=== PATIENT | female | born 1960 | race American Indian/Alaskan Native ===

== ENCOUNTER 2021-12-05 20:58 | Inpatient (IN) | payer SELFPAY ==
[2021-12-06] MEDS ORDERED: ACETAMINOPHEN 500 MG TAB PO ONE (00:13)
[2021-12-06] MEDS ORDERED: METOCLOPRAMIDE 10 MG TAB PO ONE (00:31)
--- NOTE | 2021-12-06 00:32 | Emergency Department Report ---
ED General Adult HPI - General Chief complaint: Headache Stated complaint: HEADACHE PUI?: Yes Time Seen by Provider: 12/06/21 00:09 Source: patient, EMS ( EMS documentation not available at time of chart dictation ), RN notes reviewed, old records reviewed Mode of arrival: Stretcher Limitations: Physical Limitation - History of Present Illness Initial comments: The patient was evaluated in the emergency department for symptoms described in the history of present illness. He/she was evaluated in the context of the global COVID-19 pandemic, which necessitated consideration that the patient might be at risk for infection with the virus that causes COVID-19. Institutional protocols and algorithms that pertain to the evaluation of patients at risk for COVID-19 are in a state of rapid change based on information released by regulatory bodies including the CDC and federal and state organizations. These policies and algorithms were followed during the patient's care in the emergency department. Please note that these policies, procedures and recommendations changed on a rapid basis. This patient is a 61-year-old female. She is currently taking Coumadin for mechanical mitral valve. She reports that she typically follows at [place] for her medical care. The patient presents to the ER today with a primary complaint of having rolled out of bed via an uncertain mechanism, and hit her head. She does not remember rolling out of bed or hitting her head. She reports that prior to this event, she believes that she was in her usual state of health. After hitting her head, she has a headache and neck pain, as well as right-sided shoulder pain. She says she feels somewhat confused. No loss of vision. No chest pain. No abdominal pain. No focal extremity weakness or numbness. No urinary symptoms, no hematemesis or bright red blood per rectum. Her exact last known well time is not known -: unknown Location: head, neck, right, upper extremity Severity scale (0 -10): 0 Consistency: constant Improves with: none Worsens with: none - Related Data Previous Rx's Medication Instructions Recorded Last Taken Type traMADoL [Ultram] 50 mg PO Q6HR PRN #7 tablet 09/26/18 Unknown Rx Allergies Allergy/AdvReac Type Severity Reaction Status Date / Time No Known Allergies Allergy Verified 09/26/18 06:52 ED Review of Systems ROS: Stated complaint: HEADACHE Other details as noted in HPI Constitutional: malaise. denies: fever Eyes: denies: eye discharge Respiratory: denies: cough Cardiovascular: denies: chest pain Gastrointestinal: denies: abdominal pain, hematemesis, melena, hematochezia Genitourinary: denies: urgency Musculoskeletal: arthralgia, myalgia Neurological: headache, weakness, confusion ED Past Medical Hx - Past Medical History Hx Hypertension: Yes Hx Asthma: Yes Additional medical history: hyperthyroid - Surgical History Hx Open Heart Surgery: Yes - Social History Smoking Status: Current Every Day Smoker Substance Use Type: None - Medications Home Medications: Home Medications Medication Instructions Recorded Confirmed Last Taken Type traMADoL [Ultram] 50 mg PO Q6HR PRN #7 tablet 09/26/18 Unknown Rx ED Physical Exam - General Limitations: No Limitations General appearance: alert, in no apparent distress - Head Head exam: Present: atraumatic, normocephalic - Eye Eye exam: Present: normal appearance, EOMI. Absent: nystagmus - ENT ENT exam: Present: normal exam, normal orophraynx, mucous membranes moist, normal external ear exam - Neck Neck exam: Present: normal inspection, tenderness, full ROM, other (There is diffuse cervical tenderness.). Absent: meningismus - Respiratory Respiratory exam: Present: normal lung sounds bilaterally. Absent: respiratory distress, wheezes, rales, rhonchi, stridor, decreased breath sounds - Cardiovascular Cardiovascular Exam: Present: regular rate, normal rhythm, normal heart sounds, systolic murmur. Absent: bradycardia, tachycardia, irregular rhythm, diastolic murmur, rubs, gallop - GI/Abdominal GI/Abdominal exam: Present: soft. Absent: distended, tenderness, guarding, rebound, rigid, pulsatile mass - Extremities Exam Extremities exam: Present: normal inspection, full ROM, tenderness (There is point tenderness to the shoulder), other (2+ pulses noted in the bilateral upper and lower extremities. There is no palpable cord. negative Homans sign. Muscular compartments are soft. The pelvis is stable.). Absent: pedal edema, calf tenderness - Back Exam Back exam: Present: normal inspection. Absent: tenderness, CVA tenderness (R), CVA tenderness (L), paraspinal tenderness, vertebral tenderness - Neurological Exam Neurological exam: Present: alert, oriented X3, other (No facial droop. Tongue midline. Extraocular movements intact bilaterally. Facial sensation intact to light touch in V1, V2, V3 distribution bilaterally. 5 and a 5 strength in 4 extremities. Sensation intact to light touch in 4 extremities.). Absent: motor sensory deficit - Psychiatric Psychiatric exam: Present: flat affect - Skin Skin exam: Present: warm, dry, intact, normal color. Absent: rash ED Course Vital Signs 12/05/21 12/06/21 12/06/21 21:06 01:20 02:14 Temperature 98.7 F Pulse Rate 77 102 H Respiratory 18 14 12 Rate Blood Pressure Blood Pressure 116/84 [Left] O2 Sat by Pulse 98 100 Oximetry 12/06/21 12/06/21 12/06/21 02:15 02:31 02:45 Temperature Pulse Rate 94 H 90 92 H Respiratory 12 18 15 Rate Blood Pressure 135/86 140/88 140/88 Blood Pressure [Left] O2 Sat by Pulse 100 100 100 Oximetry 12/06/21 12/06/21 12/06/21 03:01 03:15 03:31 Temperature Pulse Rate 82 85 82 Respiratory 17 17 12 Rate Blood Pressure 138/96 138/96 146/97 Blood Pressure [Left] O2 Sat by Pulse 100 100 100 Oximetry ED Medical Decision Making - Lab Data Result diagrams: 12/06/21 00:55 12/06/21 00:55 Vital Signs 12/05/21 12/06/21 21:06 01:20 Temperature 98.7 F Pulse Rate 77 Respiratory 18 14 Rate Blood Pressure 116/84 [Left] O2 Sat by Pulse 98 Oximetry Lab Results 12/06/21 12/06/21 12/06/21 Range/Units 00:55 00:55 00:55 WBC 7.1 (4.5-11.0) K/mm3 RBC 5.17 H (3.65-5.03) M/mm3 Hgb 14.4 H (10.1-14.3) gm/dl Hct 45.8 H (30.3-42.9) % MCV 89 (79-97) fl MCH 28 (28-32) pg MCHC 31 (30-34) % RDW 14.8 (13.2-15.2) % Plt Count 265 (140-440) K/mm3 Lymph % (Auto) 20.6 (13.4-35.0) % [place] % (Auto) 8.7 H (0.0-7.3) % Eos % (Auto) 1.0 (0.0-4.3) % Baso % (Auto) 1.2 (0.0-1.8) % Lymph # (Auto) 1.5 (1.2-5.4) K/mm3 [place] # (Auto) 0.6 (0.0-0.8) K/mm3 Eos # (Auto) 0.1 (0.0-0.4) K/mm3 Baso # (Auto) 0.1 (0.0-0.1) K/mm3 Seg Neutrophils % 68.5 (40.0-70.0) % Seg Neutrophils # 4.9 (1.8-7.7) K/mm3 PT 16.7 H (12.2-14.9) Sec. INR 1.22 H (0.87-1.13) Sodium 138 (137-145) mmol/L Potassium 4.1 (3.6-5.0) mmol/L Chloride 104.1 (98-107) mmol/L Carbon Dioxide 19 L (22-30) mmol/L Anion Gap 19 mmol/L BUN 12 (7-17) mg/dL Creatinine 1.0 (0.6-1.2) mg/dL Estimated GFR > 60 ml/min BUN/Creatinine Ratio 12 % Glucose 98 (65-100) mg/dL Calcium 9.4 (8.4-10.2) mg/dL - EKG Data -: EKG Interpreted by Or EKG shows normal: sinus rhythm Rate: normal - EKG Data 12/06/21 02:05 The EKG is interpreted at 12: 47 Motion artifact, sinus rhythm, rate 95 bpm. Left axis deviation, borderline left anterior fascicular block. Motion artifact. Abnormal EKG. Not a STEMI. QTc 5 1 9 ms - Radiology Data Radiology results: pending, report reviewed, image reviewed CT cervical spine wo con, CT head/brain wo con INDICATION: Pt had a fall with head trauma, on Warfarin. TECHNIQUE: CT head and cervical spine without contrast. All CT scans at this location are performed using CT dose reduction for ALARA by means of automated exposure control. COMPARISON: None. FINDINGS: HEAD: BRAIN PARENCHYMA: Asymmetric hypoattenuation of the right frontal lobe with loss of linn-white differentiation of the superior right frontal lobe (series 3 image 21) in the frontotemporal region (series 2 image 13 and series 601 image 40). No acute intracranial hemorrhage. No significant mass effect or midline shift. VENTRICULAR SYSTEM/EXTRA-AXIAL SPACES: Ventricles are normal for age. No extra-axial fluid collection. ORBITS: Normal as visualized. SKELETAL SYSTEM/SOFT TISSUES: Normal bones and soft tissues. PARANASAL SINUSES/MASTOID AIR CELLS: No significant abnormality. CERVICAL: Alignment: Normal. No acute subluxation. Geographic Bone Lesion: None present. Fracture: No acute fracture. Degenerative Changes: Mild multilevel cervical spondylosis. No significant central canal compromise. Epidural Hematoma: Not present. Prevertebral / Paraspinal Soft Tissues: Unremarkable. IMPRESSION: 1. Findings concerning for recent infarct in the right frontal lobe, as above. Recommend correlation with MRI. 2. No evidence of acute intracranial hemorrhage. 3. No acute cervical spinal fracture. CRITICAL RESULT: Time of Discovery (INFORMATION SECURITY SYSTEMS INSTRUCTOR/CDT): 12/06/2021 at 12:50 AM Time of Communication (INFORMATION SECURITY SYSTEMS INSTRUCTOR/CDT): 10/05/2022 at 12:52 AM Licensed Practitioner Receiving Report: Dr. Shen Read-Back Performed: Yes. Signer Name: Tino Cheatham MD Signed: 12/06/2021 12:52 AM Workstation Name: [id number] Right shoulder, 3 views HISTORY: Fall COMPARISON: None FINDINGS: Moderate right AC osteoarthritis. Subacromial space is preserved. No acute fracture or malalignment. Soft tissues are unremarkable. Visualized lungs are clear. IMPRESSION: No acute process. Moderate right AC joint osteoarthritis. Signer Name: Tino Cheatham MD Signed: 12/05/2021 11:53 PM Workstation Name: [id number] - Medical Decision Making Differential diagnosis, including but not limited to: Orthostasis, vagal event, structural cardiac disease, closed head injury, cervical spine injury, intracranial hemorrhage, right shoulder sprain, strain, contusion Assessment and plan 61-year-old female, last known well time not known, currently on Coumadin for mechanical mitral valve, resenting to the ER today with a primary complaint of blunt head injury and closed head injury, rolling out of the bed, and an uncertain time, uncertain mechanism. She is clinically sober, but somewhat confused, and slow to respond, patient even stated to one my colleagues "I'm slow." She has headache and neck pain, therefore, CT scan of the brain, and cervical spine are obtained, especially given the fact that the patient is systemically anticoagulated. No traumatic findings are noted, however, she is found to have evidence of a subacute stroke. tPA not indicated, as last known well time not explicitly known, and the patient takes Coumadin and systemic anticoagulation. Her examination at this time is not suggestive of a large vessel occlusion. Contacted neurology on-call, Dr. Mary Hurst, and we discussed the patient's history, physical, laboratory studies imaging studies and clinical impression. Full dose aspirin is recommended, it is recommended that we hold Coumadin at this time, given concern and potential for hemorrhagic transformation. We both agree that the patient does not require emergent CT angiographic imaging of the head and neck at this time, as her presentation is not suggestive of a large vessel occlusion. The patient will be admitted to the medical service, under the care of Dr. Fishman Given that this patient has a mechanical mitral valve, I will defer to the inpatient team to follow-up on the MRI compatibility of this valve. The aforementioned neurologist does advise that it may be reasonable to obtain repeat head CT, an inpatient CT angiogram head and neck, to evaluate vascular anatomy. I agree with this plan of care. Patient is agreeable to admission and hospitalization Critical care attestation.: If time is entered above; I have spent that time in minutes in the direct care of this critically ill patient, excluding procedure time. ED Disposition Clinical Impression: Right shoulder pain, Closed head injury, Neck pain, Anticoagulated, Abnormal CT of brain Disposition: ADMITTED INPATIENT Is pt being admited?: Yes Does the pt Need Aspirin: No (Ordered by myself.) Condition: Stable
--- NOTE | 2021-12-06 00:58 | XRay Report ---
Right shoulder, 3 views HISTORY: Fall COMPARISON: None FINDINGS: Moderate right AC osteoarthritis. Subacromial space is preserved. No acute fracture or khoi lignment. Soft tissues are unremarkable. Visualized lungs are clear. IMPRESSION: No acute process. Moderate right AC joint osteoarthritis. Signer Name: Tino Cheatham MD Signed: 12/06/2021 12:53 AM Workstation Name: [id number]
[2021-12-06 01:20] LABS: Basophils # (Auto) 0.1 K/mm3 (0.0-0.1); Basophils % (Auto) 1.2 % (0.0-1.8); Eosinophils # (Auto) 0.1 K/mm3 (0.0-0.4); Hematocrit 45.8 % (30.3-42.9); Hemoglobin 14.4 gm/dl (10.1-14.3); Lymphocytes # (Auto) 1.5 K/mm3 (1.2-5.4); Lymphocytes % (Auto) 20.6 % (13.4-35.0); Mean Corpuscular HGB Conc 31 % (30-34); Mean Corpuscular Volume 89 fl (79-97); Monocytes # (Auto) 0.6 K/mm3 (0.0-0.8); Monocytes % (Auto) 8.7 % (0.0-7.3); Platelet Count 265 K/mm3 (140-440); Red Blood Count 5.17 M/mm3 (3.65-5.03); Red Cell Distribution Width 14.8 % (13.2-15.2)
[2021-12-06 01:31] LABS: INR 1.22 (0.87-1.13)
[2021-12-06 01:34] LABS: BUN/Creatinine Ratio 12; Blood Urea Nitrogen 12 mg/dL (7-17); Calcium 9.4 mg/dL (8.4-10.2); Hemolysis Index 19
--- NOTE | 2021-12-06 01:56 | Cat Scan Report ---
CT cervical spine wo con, CT head/brain wo con INDICATION: Pt had a fall with head trauma, on Warfarin. TECHNIQUE: CT head and cervical spine without contrast. All CT scans at this location are performed u sing CT dose reduction for ALARA by means of automated exposure control. COMPARISON: None. FINDINGS: HEAD: BRAIN PARENCHYMA: Asymmetric hypoattenuation of the right frontal lobe with loss of linn-white differ entiation of the superior right frontal lobe (series 3 image 21) in the frontotemporal region (series 2 image 13 and series 601 image 40). No acute intracranial hemorrhage. No significant mass effect or midline shift. VENTRICULAR SYSTEM/EXTRA-AXIAL SPACES: Ventricles are normal for age. No extra-axial fluid collection . ORBITS: Normal as visualized. SKELETAL SYSTEM/SOFT TISSUES: Normal bones and soft tissues. PARANASAL SINUSES/MASTOID AIR CELLS: No significant abnormality. CERVICAL: Alignment: Normal. No acute subluxation. Geographic Bone Lesion: None present. Fracture: No acute fracture. Degenerative Changes: Mild multilevel cervical spondylosis. No significant central canal compromise. Epidural Hematoma: Not present. Prevertebral / Paraspinal Soft Tissues: Unremarkable. IMPRESSION: 1. Findings concerning for recent infarct in the right frontal lobe, as above. Recommend correlation with MRI. 2. No evidence of acute intracranial hemorrhage. 3. No acute cervical spinal fracture. CRITICAL RESULT: Time of Discovery (MEDICATION SPECIALIST/CDT): 12/06/2021 at 12:50 AM Time of Communication (MEDICATION SPECIALIST/CDT): 10/05/2022 at 12:52 AM Licensed Practitioner Receiving Report: Dr. Shen Read-Back Performed: Yes. Signer Name: Tino Cheatham MD Signed: 12/06/2021 1:52 AM Workstation Name: [id number]
--- NOTE | 2021-12-06 01:56 | Cat Scan Report ---
CT cervical spine wo con, CT head/brain wo con INDICATION: Pt had a fall with head trauma, on Warfarin. TECHNIQUE: CT head and cervical spine without contrast. All CT scans at this location are performed u sing CT dose reduction for ALARA by means of automated exposure control. COMPARISON: None. FINDINGS: HEAD: BRAIN PARENCHYMA: Asymmetric hypoattenuation of the right frontal lobe with loss of linn-white differ entiation of the superior right frontal lobe (series 3 image 21) in the frontotemporal region (series 2 image 13 and series 601 image 40). No acute intracranial hemorrhage. No significant mass effect or midline shift. VENTRICULAR SYSTEM/EXTRA-AXIAL SPACES: Ventricles are normal for age. No extra-axial fluid collection . ORBITS: Normal as visualized. SKELETAL SYSTEM/SOFT TISSUES: Normal bones and soft tissues. PARANASAL SINUSES/MASTOID AIR CELLS: No significant abnormality. CERVICAL: Alignment: Normal. No acute subluxation. Geographic Bone Lesion: None present. Fracture: No acute fracture. Degenerative Changes: Mild multilevel cervical spondylosis. No significant central canal compromise. Epidural Hematoma: Not present. Prevertebral / Paraspinal Soft Tissues: Unremarkable. IMPRESSION: 1. Findings concerning for recent infarct in the right frontal lobe, as above. Recommend correlation with MRI. 2. No evidence of acute intracranial hemorrhage. 3. No acute cervical spinal fracture. CRITICAL RESULT: Time of Discovery (BLOCK BREAKER/CDT): 12/06/2021 at 12:50 AM Time of Communication (BLOCK BREAKER/CDT): 10/05/2022 at 12:52 AM Licensed Practitioner Receiving Report: Dr. Shen Read-Back Performed: Yes. Signer Name: Tino Cheatham MD Signed: 12/06/2021 1:52 AM Workstation Name: [id number]
[2021-12-06] MEDS ORDERED: ASPIRIN 81 MG TAB CHEW PO ONE (01:59)
[2021-12-06] MEDS ORDERED: HYDROmorphone 1 MG/1 ML INJ IV PRN (02:32)
[2021-12-06] MEDS ORDERED: ONDANSETRON 4 MG/2 ML INJ IV PRN (02:32)
[2021-12-06] MEDS ORDERED: ALBUTEROL 2.5 MG/3 ML NEBU IH PRN (02:32)
[2021-12-06] MEDS ORDERED: MORPHINE 2 MG/1 ML INJ IV PRN (02:32)
--- NOTE | 2021-12-06 02:43 | History and Physical Report ---
History of Present Illness Date of examination: 12/06/21 Date of admission: 12/06/21 Chief complaint: Headache Strokelike symptom History of present illness: 61-year-old female with past medical history of hypertension, asthma, hypothyroidism, currently taking Coumadin for mechanical mitral valve was brought to the emergency room because of headache strokelike symptom. Patient get up from the bed and feels weak. Initial CT scan of the head shows findings concerning for recent infarct in the right frontal lobe. No evidence of acute intracranial hemorrhage. No acute cervical spinal fracture . Subsequently ER doctor discussed the case with neurologist on-call who recommended aspirin 325 mg and admit the patient for further stroke work-up. So going to admit the patient I put the patient on stroke pathway. Aspirin 325 mg p.o. daily Lipitor 40 mg p.o. daily will consult neurology for evaluation also order MRI of the brain MR ray of the brain and neck and patient also has elevated troponin. Will consult cardiology and echocardiogram she reports that she typically follows at [place] for her medical care. Past History Past Medical History: hypertension, other (Asthma hypothyroidism) Past Surgical History: Other (Mitral valve surgery) Social history: smoking Medications and Allergies Allergies Allergy/AdvReac Type Severity Reaction Status Date / Time No Known Allergies Allergy Verified 09/26/18 06:52 Home Medications Medication Instructions Recorded Confirmed Last Taken Type traMADoL [Ultram] 50 mg PO Q6HR PRN #7 tablet 09/26/18 Unknown Rx Active Meds: Active Medications Acetaminophen (Acetaminophen 325 Mg Tab) 650 mg PO Q4H PRN PRN Reason: Pain MILD(1-3)/Fever >100.5/PRABHAKAR Albuterol (Albuterol 2.5 Mg/3 Ml Nebu) 2.5 mg IH Q3HRT PRN PRN Reason: Shortness Of Breath Albuterol/Ipratropium (Ipratropium/Albuterol Sulfate 3 Ml Ampul.Neb) 1 ampul IH Q6HRT GERSON Aspirin (Aspirin 325 Mg Tab) 325 mg PO QDAY GERSON Atorvastatin Calcium (Atorvastatin 40 Mg Tab) 40 mg PO QHS GERSON Famotidine (Famotidine 20 Mg/2 Ml Inj) 20 mg IV BID GERSON Hydromorphone HCl (Hydromorphone 1 Mg/1 Ml Inj) 0.5 mg IV Q3H PRN PRN Reason: Pain , Severe (7-10) Sodium Chloride (Nacl 0.9% 1000 Ml) 1,000 mls @ 100 mls/hr IV DIRECT GERSON Labetalol HCl (Labetalol 20 Mg/4 Ml Inj) 10 mg IV Q5MIN PRN PRN Reason: to maintain SBP < 180 Morphine Sulfate (Morphine 2 Mg/1 Ml Inj) 2 mg IV Q4H PRN PRN Reason: Pain, Moderate (4-6) Ondansetron HCl (Ondansetron 4 Mg/2 Ml Inj) 4 mg IV Q8H PRN PRN Reason: Nausea And Vomiting Sodium Chloride (Sodium Chloride 0.9% 10 Ml Flush Syringe) 10 ml IV BID GERSON Sodium Chloride (Sodium Chloride 0.9% 10 Ml Flush Syringe) 10 ml IV PRN PRN PRN Reason: LINE FLUSH Sodium Chloride (Sodium Chloride 0.9% 10 Ml Flush Syringe) 10 ml INJ PRN PRN PRN Reason: LINE FLUSH Review of Systems Constitutional: weakness, other (Headache) Exam - Constitutional Vitals: Temp Pulse Resp BP Pulse Ox 98.7 F 94 H 12 135/86 100 12/05/21 21:06 12/06/21 02:15 12/06/21 02:15 12/06/21 02:15 12/06/21 02:15 General appearance: Present: no acute distress, well-nourished - EENT Eyes: Present: PERRL ENT: hearing intact, clear oral mucosa - Neck Neck: Present: supple, normal ROM - Respiratory Respiratory effort: normal Respiratory: bilateral: CTA - Cardiovascular Heart Sounds: Present: S1 & S2. Absent: rub, click - Extremities Extremities: pulses symmetrical, No edema Peripheral Pulses: within normal limits - Abdominal General gastrointestinal: Present: soft, non-tender, non-distended, normal bowel sounds Female genitourinary: Present: normal - Integumentary Integumentary: Present: clear, warm, dry - Musculoskeletal Musculoskeletal: gait normal, strength equal bilaterally - Psychiatric Psychiatric: appropriate mood/affect, intact judgment & insight - Neurologic Neurologic: CNII-XII intact, moves all extremities Results - Labs CBC & Chem 7: 12/06/21 00:55 12/06/21 00:55 Labs: Laboratory Last Values WBC 7.1 K/mm3 (4.5-11.0) 12/06/21 00:55 RBC 5.17 M/mm3 (3.65-5.03) H 12/06/21 00:55 Hgb 14.4 gm/dl (10.1-14.3) H 12/06/21 00:55 Hct 45.8 % (30.3-42.9) H 12/06/21 00:55 MCV 89 fl (79-97) 12/06/21 00:55 MCH 28 pg (28-32) 12/06/21 00:55 MCHC 31 % (30-34) 12/06/21 00:55 RDW 14.8 % (13.2-15.2) 12/06/21 00:55 Plt Count 265 K/mm3 (140-440) 12/06/21 00:55 Lymph % (Auto) 20.6 % (13.4-35.0) 12/06/21 00:55 [place] % (Auto) 8.7 % (0.0-7.3) H 12/06/21 00:55 Eos % (Auto) 1.0 % (0.0-4.3) 12/06/21 00:55 Baso % (Auto) 1.2 % (0.0-1.8) 12/06/21 00:55 Lymph # (Auto) 1.5 K/mm3 (1.2-5.4) 12/06/21 00:55 [place] # (Auto) 0.6 K/mm3 (0.0-0.8) 12/06/21 00:55 Eos # (Auto) 0.1 K/mm3 (0.0-0.4) 12/06/21 00:55 Baso # (Auto) 0.1 K/mm3 (0.0-0.1) 12/06/21 00:55 Seg Neutrophils % 68.5 % (40.0-70.0) 12/06/21 00:55 Seg Neutrophils # 4.9 K/mm3 (1.8-7.7) 12/06/21 00:55 PT 16.7 Sec. (12.2-14.9) H 12/06/21 00:55 INR 1.22 (0.87-1.13) H 12/06/21 00:55 Sodium 138 mmol/L (137-145) 12/06/21 00:55 Potassium 4.1 mmol/L (3.6-5.0) 12/06/21 00:55 Chloride 104.1 mmol/L (98-107) 12/06/21 00:55 Carbon Dioxide 19 mmol/L (22-30) L 12/06/21 00:55 Anion Gap 19 mmol/L 12/06/21 00:55 BUN 12 mg/dL (7-17) 12/06/21 00:55 Creatinine 1.0 mg/dL (0.6-1.2) 12/06/21 00:55 Estimated GFR > 60 ml/min 12/06/21 00:55 BUN/Creatinine Ratio 12 % 12/06/21 00:55 Glucose 98 mg/dL (65-100) 12/06/21 00:55 Calcium 9.4 mg/dL (8.4-10.2) 12/06/21 00:55 - Imaging and Cardiology CT Scan - head: report reviewed Assessment and Plan VTE prophylaxis?: Mechanical Plan of care discussed with patient/family: Yes - Patient Problems (1) CVA (cerebral vascular accident) Current Visit: Yes Status: Acute Plan to address problem: Admit the patient to the medical telemetry. Aspirin 325 mg p.o. daily as per neurology recommendation. Lipitor 40 mg p.o. daily. PT OT speech evaluation neurology recommendation and evaluation. MRI of the brain MRA of the brain and neck with and without contrast, echocardiogram (2) HTN (hypertension) Current Visit: Yes Status: Acute Plan to address problem: Labetalol 10 mg IV every 6 hours as needed. We will continue the home medication (3) Asthma Current Visit: Yes Status: Acute Plan to address problem: Oxygen via nasal cannula 3 L/min. DuoNeb by nebulizer every 4 hours. Albuterol via nebulizer every 4 hours as needed (4) Mitral valve disorder Current Visit: Yes Status: Acute Plan to address problem: Patient has history of mitral valve surgery on Coumadin as per note with subtherapeutic PT/INR. We will follow neurology recommendation and resume Coumadin if okay with neurology (5) Tobacco abuse Current Visit: Yes Status: Acute Plan to address problem: Patient counseled regarding quitting smoking. Nicotine patch if needed (6) Elevated troponin Current Visit: Yes Status: Acute Plan to address problem: Aspirin 325 mg p.o. daily. Lipitor 40 mg p.o. daily. Due to the serial cardiac enzyme. Nitroglycerin as needed. Echocardiogram. Cardiology evaluation (7) DVT prophylaxis Current Visit: Yes Status: Acute Plan to address problem: SCD for DVT prophylaxis. Pepcid 20 mg IV every 12 hours for GI prophylaxis. Patient is a full code
[2021-12-06] MEDS ORDERED: SODIUM CHLORIDE 0.9% 1000 ML 1,000 ML IV SCH (02:45)
[2021-12-06 05:34] LABS: Chol/HDL Ratio 3.65 %
--- NOTE | 2021-12-06 08:27 | Emergency Department Report ---
Blank Doc - Documentation Documentation: [facility] Consult Note # Demographics Consult Type: General Neurology Patient Location: Emergency Room First Name: Mary Ellen Last Name: Jared Date of : 1960 Age: 61 Gender: Female Facility: [facility] Time of Initial Page (Eastern Time): 12/06/2021, 01:55 Time of Return Call (Eastern Time): 12/06/2021, 01:55 Phone Only Consult: 61 yo woman on warfarin for mechanical valve presenting with headache and mild confusion , self reported. CT head without bleed but possible subacute stroke per radiology. Last known well last night. Plan to admit for stroke work up. MRI brain if able with valve. Infectious work up. Vascular imaging. Aspirin for now. Can resume Warfarin if stable repeat imaging Pt/ ot # Logistics Telemedicine: phone only
--- NOTE | 2021-12-06 09:01 | Consultation ---
History of Present Illness Consult date: 12/06/21 Reason for Consult: Confusion and headache, Hx of mitral valve and is on coumadine ,INR#1.2 History of present illness: Headache Strokelike symptom History of present illness: 61-year-old female with past medical history of hypertension, asthma, hypothyroidism, currently taking Coumadin for mechanical mitral valve was brought to the emergency room because of headache strokelike symptom. Patient get up from the bed and feels weak. Initial CT scan of the head shows findings concerning for recent infarct in the right frontal lobe. No evidence of acute intracranial hemorrhage. No acute cervical spinal fracture . today she is alert oriented with sluggish speech , and slight left side weakness according to her at time she forget to take her Coumadin, her NIH#1.22 she reports that she typically follows at [facility] for her medical care. Past History Past Medical History: hypertension, other (Asthma hypothyroidism),AF Past Surgical History: Other (Mitral valve surgery)1999 Social history: smoking Medications and Allergies Allergies Allergy/AdvReac Type Severity Reaction Status Date / Time No Known Allergies Allergy Verified 09/26/18 06:52 Home Medications Medication Instructions Recorded Confirmed Last Taken Type traMADoL [Ultram] 50 mg PO Q6HR PRN #7 tablet 09/26/18 Unknown Rx Active Meds: Active Medications Acetaminophen (Acetaminophen 325 Mg Tab) 650 mg PO Q4H PRN PRN Reason: Pain MILD(1-3)/Fever >100.5/PRABHAKAR Albuterol (Albuterol 2.5 Mg/3 Ml Nebu) 2.5 mg IH Q3HRT PRN PRN Reason: Shortness Of Breath Albuterol/Ipratropium (Ipratropium/Albuterol Sulfate 3 Ml Ampul.Neb) 1 ampul IH Q6HRT GERSON Aspirin (Aspirin 325 Mg Tab) 325 mg PO QDAY GERSON Atorvastatin Calcium (Atorvastatin 40 Mg Tab) 40 mg PO QHS GERSON Famotidine (Famotidine 20 Mg/2 Ml Inj) 20 mg IV BID GERSON Hydromorphone HCl (Hydromorphone 1 Mg/1 Ml Inj) 0.5 mg IV Q3H PRN PRN Reason: Pain , Severe (7-10) Sodium Chloride (Nacl 0.9% 1000 Ml) 1,000 mls @ 100 mls/hr IV DIRECT GERSON Labetalol HCl (Labetalol 20 Mg/4 Ml Inj) 10 mg IV Q5MIN PRN PRN Reason: to maintain SBP < 180 Morphine Sulfate (Morphine 2 Mg/1 Ml Inj) 2 mg IV Q4H PRN PRN Reason: Pain, Moderate (4-6) Ondansetron HCl (Ondansetron 4 Mg/2 Ml Inj) 4 mg IV Q8H PRN PRN Reason: Nausea And Vomiting Sodium Chloride (Sodium Chloride 0.9% 10 Ml Flush Syringe) 10 ml IV BID GERSON Sodium Chloride (Sodium Chloride 0.9% 10 Ml Flush Syringe) 10 ml IV PRN PRN PRN Reason: LINE FLUSH Sodium Chloride (Sodium Chloride 0.9% 10 Ml Flush Syringe) 10 ml INJ PRN PRN PRN Reason: LINE FLUSH Review of Systems Constitutional: weakness, other (Headache) Exam Past History Past Medical History: hypertension, other (Asthma hypothyroidism) Past Surgical History: Other (Mitral valve surgery) Social history: smoking Medications and Allergies Allergies Allergy/AdvReac Type Severity Reaction Status Date / Time No Known Allergies Allergy Verified 09/26/18 06:52 Home Medications Medication Instructions Recorded Confirmed Last Taken Type traMADoL [Ultram] 50 mg PO Q6HR PRN #7 tablet 09/26/18 Unknown Rx Active Meds: Active Medications Acetaminophen (Acetaminophen 325 Mg Tab) 650 mg PO Q4H PRN PRN Reason: Pain MILD(1-3)/Fever >100.5/PRABHAKAR Albuterol (Albuterol 2.5 Mg/3 Ml Nebu) 2.5 mg IH Q3HRT PRN PRN Reason: Shortness Of Breath Albuterol/Ipratropium (Ipratropium/Albuterol Sulfate 3 Ml Ampul.Neb) 1 ampul IH Q6HRT GERSON Aspirin (Aspirin 325 Mg Tab) 325 mg PO QDAY GERSON Atorvastatin Calcium (Atorvastatin 40 Mg Tab) 40 mg PO QHS GERSON Famotidine (Famotidine 20 Mg/2 Ml Inj) 20 mg IV BID GERSON Hydromorphone HCl (Hydromorphone 1 Mg/1 Ml Inj) 0.5 mg IV Q3H PRN PRN Reason: Pain , Severe (7-10) Sodium Chloride (Nacl 0.9% 1000 Ml) 1,000 mls @ 100 mls/hr IV DIRECT GERSON Labetalol HCl (Labetalol 20 Mg/4 Ml Inj) 10 mg IV Q5MIN PRN PRN Reason: to maintain SBP < 180 Morphine Sulfate (Morphine 2 Mg/1 Ml Inj) 2 mg IV Q4H PRN PRN Reason: Pain, Moderate (4-6) Ondansetron HCl (Ondansetron 4 Mg/2 Ml Inj) 4 mg IV Q8H PRN PRN Reason: Nausea And Vomiting Sodium Chloride (Sodium Chloride 0.9% 10 Ml Flush Syringe) 10 ml IV BID GERSON Sodium Chloride (Sodium Chloride 0.9% 10 Ml Flush Syringe) 10 ml IV PRN PRN PRN Reason: LINE FLUSH Physical Examination - Vital Signs Vital Signs: Vital Signs Temp Pulse Resp BP Pulse Ox 98.7 F 77 18 116/84 98 12/05/21 21:06 12/05/21 21:06 12/05/21 21:06 12/05/21 21:06 12/05/21 21:06 - Constitutional General appearance: comfortable - EENT EENT: Present: PERRL, mucous membranes moist - Respiratory Respiratory: Present: lungs clear, rhonchi - Cardiovascular Cardiovascular: Present: other (irregular) Extremities: Present: no peripheral edema bilatateraly, no clubbing, cyanosis - Gastrointestinal Gastrointestinal: Present: normoactive bowel sounds - Integumentary Integumentary: Present: normal - Neurologic Cranial nerve examination: PERRL, EOMI, facial droop Detailed motor examination: other (left side weakness4-/5 upper and lower , sensation intact , reflexes2+ gait not done) - Level of Consciousness 1a. Level of Consciousness: alert/keenly responsive - LOC Questions 1b. LOC Questions: answers both correctly - LOC Command 1c. LOC Commands: performs tasks correctly - Best Gaze 2. Best Gaze: normal - Visual 3. Visual: no visual loss - Facial Palsy 4. Facial Palsy: minor paralysis - Motor Arm 5a. Motor Arm Left: drift 5b. Motor Arm Right: no drift - Motor Leg 6a. Motor Leg Left: drift 6b. Motor Leg Right: no drift - Limb Ataxia 7. Limb Ataxia: absent - Sensory 8. Sensory: normal - Best Language 9. Best Language: no aphasia - Dysarthria 10. Dysarthria: normal - Extinction and Inattention 11. Extinction/Inattention: no abnormality - Scoring Total Score: 3 Stroke Severity: Minor Stroke Results - Laboratory Findings CBC and BMP: 12/06/21 00:55 12/06/21 00:55 Abnormal Lab Findings: Abnormal Labs 12/06/21 12/06/21 12/06/21 00:55 00:55 00:55 RBC 5.17 H Hgb 14.4 H Hct 45.8 H [place] % (Auto) 8.7 H PT 16.7 H INR 1.22 H Carbon Dioxide 19 L Troponin T Cholesterol LDL Cholesterol Direct HDL Cholesterol 12/06/21 00:55 RBC Hgb Hct [place] % (Auto) PT INR Carbon Dioxide Troponin T 0.188 H* Cholesterol 230 H LDL Cholesterol Direct 148 H HDL Cholesterol 63 H Assessment and Plan Assessment and Plan 61-year-old female with past medical history of hypertension, asthma, hypothyroidism, currently taking Coumadin for mechanical mitral valve was brought to the emergency room because of headache strokelike symptom. Patient get up from the bed and feels weak. Initial CT scan of the head shows findings concerning for recent infarct in the right frontal lobe. No evidence of acute intracranial hemorrhage. No acute cervical spinal fracture . - Patient Problems # CVA (cerebral vascular accident) -new onst noted yesterday by pt. -Ct brain possible right frontal hypodensity -she is not a candidate for TPA nor thrombectomy -she is on coumadin with INR#1.22 subtherapeutic -she is with poor compliance with her medications -today NIH#3 -echo is remarkable for left dilated atrium with Ef#45-50% no thrombus is noted -Hx of AF -LDL#148 -started on ASA and lipitor -coumadin is on hold -MRI brain showedright basal ganglia and right frontal infarct , no hemorrhage -MRA brain no large vesseles involvment is noted -US carotid is pending -Pt/ST evaluate #HTN (hypertension) -Labetalol 10 mg IV every 6 hours as needed. We will continue the home medication # Asthma -Oxygen via nasal cannula 3 L/min. DuoNeb by nebulizer every 4 hours. Albuterol via nebulizer every 4 hours as needed # Mitral valve disorder -Patient has history of mitral valve surgery on Coumadin as per note with subtherapeutic PT/INR. -no objection to resume coumadine -INR>3 # Atrial fibrillation -controlled rate -echo with dilated left atrium -on coumadine with subtherapeutic INR#1.22 -no objection to restart coumadine # Elevated troponin Current Visit: Yes Status: Acute Plan to address problem: Aspirin 325 mg p.o. daily. Lipitor 40 mg p.o. daily. Due to the serial cardiac enzyme. Nitroglycerin as needed. Echocardiogram. Cardiology evaluation # Tobacco abuse -Patient counseled regarding quitting smoking. Nicotine patch if needed # DVT prophylaxis -SCD for DVT prophylaxis. Pepcid 20 mg IV every 12 hours for GI prophylaxis. Patient is a full code will follow
[2021-12-06] MEDS: IPRATROPIUM/ALBUTEROL SULFATE 3 ML AMPUL.NEB IH SCH ×3 (10:00→21:18)
--- NOTE | 2021-12-06 10:26 | Magnetic Resonance Report ---
MR brain wo con, MR MRA/MRV head wo con INDICATION / CLINICAL INFORMATION: stroke, dizziness & headache. TECHNIQUE: Multiplanar, multisequence MRI of the brain. MRA of the head. 3-D/MIP reformats postprocessed. Percentage stenosis is determined by direct quantit ative measurements of distal internal carotid artery diameter compared with normal reference segments or by criteria similar to NASCET where applicable. COMPARISON: None available. FINDINGS: BRAIN: Intracranial: Restricted diffusion is seen within the right caudate, putamen, right frontal lobe, and a small punctate focus seen within the right posterior parietal lobe. The areas infarction involving the middle and anterior cerebral artery territories as the medial aspect of the right superior front al gyrus is involved. No hemorrhage. Ventricular caliber is normal. No extra-axial collection. No mas s. No herniation. Mild sequela of chronic vascular disease. Orbits: No significant abnormality of visualized orbits. Sinuses/mastoid: No significant abnormality of visualized sinuses and mastoid air cells. Additional findings: None. MRA HEAD: Intracranial vertebral arteries: No occlusion or significant stenosis. Basilar artery: No occlusion or significant stenosis. Posterior cerebral arteries: No occlusion or significant stenosis. Intracranial internal carotid arteries: No occlusion or significant stenosis. Anterior cerebral arteries: Left anterior cerebral artery is hypoplastic or absent. No occlusion or s ignificant stenosis. Middle cerebral arteries: No occlusion or significant stenosis. No aneurysm. Additional findings: None. IMPRESSION: 1. MRI Brain: Acute infarction involving the right basal ganglia and frontal lobe and both FEI and MC A territories. 2. MRA Head: No proximal large vessel occlusion. Signer Name: Corky Dolan MD Signed: 12/06/2021 10:21 AM Workstation Name: [id number]
--- NOTE | 2021-12-06 10:29 | Electrocardiograph Report ---
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
--- NOTE | 2021-12-06 13:24 | Consultation ---
History of Present Illness Consult date: 12/06/21 Requesting physician: NICOLAS JAIMES Consult reason: elevated troponin History of present illness: Patient is a 61-year-old female with a past medical history of hypertension, A. fib, CHF, mechanical mitral valve, hypothyroidism who came to the ED for a fall overnight. Patient states that she was getting out of bed when she fell and hit her head. Patient states she felt weak which precipitated her fall. Hospital work-up thus far has shown patient to have acute CVA. Of note patient reports that she gets all her care from [facility] however she has not followed up recently. She further reports that she has not had her INR checked in a long time she cannot quantify how long. In the ED her INR was found to be subtherapeutic. Patient was also found to have elevated troponins however patient denies any complaints of chest pain, shortness of breath, nausea, vomiting, or diaphoresis. Patient is previously unknown by our practice. Cardiology is consulted for elevated troponins Past History Past Medical History: atrial fib, heart failure, hypertension, other (Asthma hypothyroidism) Past Surgical History: Other (Mitral valve surgery) Social history: smoking Family history: CAD, stroke Medications and Allergies Allergies Allergy/AdvReac Type Severity Reaction Status Date / Time No Known Allergies Allergy Verified 09/26/18 06:52 Home Medications Medication Instructions Recorded Confirmed Last Taken Type traMADoL [Ultram] 50 mg PO Q6HR PRN #7 tablet 09/26/18 Unknown Rx Active Meds: Active Medications Acetaminophen (Acetaminophen 325 Mg Tab) 650 mg PO Q4H PRN PRN Reason: Pain MILD(1-3)/Fever >100.5/PRABHAKAR Albuterol (Albuterol 2.5 Mg/3 Ml Nebu) 2.5 mg IH Q3HRT PRN PRN Reason: Shortness Of Breath Albuterol/Ipratropium (Ipratropium/Albuterol Sulfate 3 Ml Ampul.Neb) 1 ampul IH Q6HRT [facility] Last Admin: 12/06/21 10:00 Dose: Not Given Aspirin (Aspirin 325 Mg Tab) 325 mg PO QDAY [facility] Atorvastatin Calcium (Atorvastatin 40 Mg Tab) 40 mg PO QHS [facility] Famotidine (Famotidine 20 Mg/2 Ml Inj) 20 mg IV BID [facility] Sodium Chloride (Nacl 0.9% 1000 Ml) 1,000 mls @ 100 mls/hr IV DIRECT GERSON Labetalol HCl (Labetalol 20 Mg/4 Ml Inj) 10 mg IV Q5MIN PRN PRN Reason: to maintain SBP < 180 Ondansetron HCl (Ondansetron 4 Mg/2 Ml Inj) 4 mg IV Q8H PRN PRN Reason: Nausea And Vomiting Sodium Chloride (Sodium Chloride 0.9% 10 Ml Flush Syringe) 10 ml IV BID GERSON Sodium Chloride (Sodium Chloride 0.9% 10 Ml Flush Syringe) 10 ml IV PRN PRN PRN Reason: LINE FLUSH Review of Systems Constitutional: weakness, no weight loss, no weight gain, no fever Ears, nose, mouth and throat: no nasal congestion, no nasal discharge, no sinus pressure Cardiovascular: no chest pain, no orthopnea, no palpitations, no edema, no lightheadedness, no shortness of breath, no dyspnea on exertion Respiratory: no shortness of breath, no dyspnea on exertion Gastrointestinal: no abdominal pain, no nausea, no vomiting Musculoskeletal: muscle weakness, no neck stiffness, no neck pain Integumentary: no rash, no pruritis, no redness Neurological: weakness Psychiatric: no anxiety, no memory loss Endocrine: no cold intolerance, no heat intolerance Hematologic/Lymphatic: no easy bruising, no easy bleeding Physical Examination Vital Signs Temp Pulse Resp BP Pulse Ox 98.7 F 77 18 116/84 98 12/05/21 21:06 12/05/21 21:06 12/05/21 21:06 12/05/21 21:06 12/05/21 21:06 General appearance: no acute distress HEENT: Positive: PERRL Neck: Positive: trachea midline Cardiac: Positive: irregularly irregular Lungs: Positive: Normal Breath Sounds Neuro: Positive: Grossly Intact Abdomen: Positive: Soft, Active Bowel Sounds Skin: Negative: Rash, Suspicious Lesions, Ulceration Extremities: Present: upper extr. pulses. Absent: edema Results 12/06/21 00:55 12/06/21 00:55 Coagulation 12/06/21 Range/Units 00:55 PT 16.7 H (12.2-14.9) Sec. INR 1.22 H (0.87-1.13) Lipids 12/06/21 Range/Units 00:55 Triglycerides 113 (2-149) mg/dL Cholesterol 230 H (50-199) mg/dL HDL Cholesterol 63 H (40-59) mg/dL Cholesterol/HDL Ratio 3.65 % CBC 12/06/21 Range/Units 00:55 WBC 7.1 (4.5-11.0) K/mm3 RBC 5.17 H (3.65-5.03) M/mm3 Hgb 14.4 H (10.1-14.3) gm/dl Hct 45.8 H (30.3-42.9) % Plt Count 265 (140-440) K/mm3 Lymph # (Auto) 1.5 (1.2-5.4) K/mm3 Whiteside # (Auto) 0.6 (0.0-0.8) K/mm3 Eos # (Auto) 0.1 (0.0-0.4) K/mm3 Baso # (Auto) 0.1 (0.0-0.1) K/mm3 Comprehensive Metabolic Panel 12/06/21 Range/Units 00:55 Sodium 138 (137-145) mmol/L Potassium 4.1 (3.6-5.0) mmol/L Chloride 104.1 (98-107) mmol/L Carbon Dioxide 19 L (22-30) mmol/L BUN 12 (7-17) mg/dL Creatinine 1.0 (0.6-1.2) mg/dL Glucose 98 (65-100) mg/dL Calcium 9.4 (8.4-10.2) mg/dL - Imaging and Cardiology Echo: report reviewed EKG interpretations - Telemetry EKG Rhythm: Atrial Fibrillation - EKG Supraventricular dysrhythmia: atrial fibrillation Ventricular dysrhythmias: ventricular premature com Repolarization changes or abnormalities: Q-T interval prolongation Assessment and Plan Patient is a 61-year-old female with a past medical history of hypertension, A. fib, CHF, mechanical mitral valve, hypothyroidism who came to the ED for a fall overnight Acute CVA-neurology following NSTEMI A. fib Hypertension S/p mechanical mitral valve replacement Subtherapeutic INR Asthma Hypothyroidism Cardiomyopathy HFrEF Echo 12/06/2021-EF 45 to 50%. Left ventricular diastolic function is indeterminate. Right ventricular systolic function is mildly reduced. Left atrium is severely dilated. Bubble study does not demonstrate PFO. Mechanical mitral valve appears normal no significant gradient noted across mitral valve difficult to evaluate for mitral regurgitation Plan: EKG shows A. fib rate 95 with PVCs, left anterior fascicular block, probable LVH and prolonged QT. No acute ischemic changes troponins noted to be elevated however patient denies any complaints of chest pain shortness of breath or any other cardiac symptoms Unclear as to reason patient has elevated troponin however due to lack of cardiac complaints will hold anticoagulation suspect NSTEMI type II Due to patient's history of A. fib and mechanical mitral valve strongly recommend patient to be anticoagulated with heparin and bridged with Coumadin due to patient being high risk for thrombotic event. Per documentation neurology has no objection to resuming anticoagulation. Will initiate heparin drip and bridge to Coumadin. Pharmacy to dose Coumadin Per documentation neurology to resume antihypertensive medication Patient seen in conjunction with who agrees with this plan of care
[2021-12-06] MEDS: FAMOTIDINE 20 MG/2 ML INJ IV SCH ×2 (15:08→22:06)
[2021-12-06] MEDS: ASPIRIN 325 MG TAB PO SCH (15:08)
[2021-12-06] MEDS ORDERED: HEPARIN 10,000 UNITS/10 ML VIAL IV PRN (15:47)
[2021-12-06] MEDS ORDERED: HEPARIN 10,000 UNITS/10 ML VIAL IV ONE (15:47)
--- NOTE | 2021-12-06 16:12 | Vascular Lab Report ---
DUPLEX DOPPLER ULTRASOUND CAROTID, BILATERAL INDICATION / CLINICAL INFORMATION: cva. COMPARISON: None available. FINDINGS: RIGHT CAROTID: Mild partially calcified plaque is identified in the carotid bulb - PLAQUE ESTIMATE (%): < 50% - CCA velocity: 73 cm/sec. - ICA peak systolic velocity: 81 cm/sec. - ICA/CCA PSV Ratio: Less than 2 Right Vertebral Artery: Both antegrade and retrograde flow are identified in the right vertebral bob ry. LEFT CAROTID: The left common carotid artery could not be identified. This suggests a congenital anom jay. The ICA is visualized and demonstrates no significant atherosclerotic disease. - PLAQUE ESTIMATE (%): < 50% - CCA velocity: Not clearly seen - ICA peak systolic velocity: 87 cm/sec. Left Vertebral Artery: Antegrade flow. IMPRESSION: There is less than 50% diameter stenosis in the right carotid system. The left common carotid artery is not clearly identified on ultrasound. 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 Consider further evaluation with C TA neck. There is less than 50% diameter stenosis in the left ICA via velocity standards. Antegrade and retrograde flow is identified in the right vertebral artery. Velocity criteria are extrapolated from diameter data as defined by the Society of Radiologists in Ul trasound Consensus Conference, Radiology 2003; 229;340-346. NO STENOSIS (NORMAL) - Plaque = none; ICA PSV < 125 cm/sec; ICA/CCA PSV Ratio < 2.0 <50% STENOSIS - Plaque < 50%; ICA PSV < 125 cm/sec; ICA/CCA PSV Ratio < 2.0 50-69% STENOSIS - Plaque > 50%; ICA PSV = 125-230 cm/sec; ICA/CCA PSV Ratio = 2.0-4.0 >70% BUT <100% STENOSIS - Plaque > 50%; ICA PSV > 230 cm/sec; ICA/CCA PSV Ratio > 4.0 NEAR OCCLUSION - Plaque = visible lumen; ICA PSV = high/low/none; ICA/CCA PSV Ratio = variable TOTAL OCCLUSION - Plaque = no lumen; ICA PSV = none; ICA/CCA PSV Ratio = N/A Signer Name: Luis Antonio Riojas Jr, MD Signed: 12/06/2021 4:08 PM Workstation Name: [id number]
[2021-12-06 16:45] LABS: Hematocrit 37.5 % (30.3-42.9); Hemoglobin 13.1 gm/dl (10.1-14.3)
[2021-12-06] MEDS: HEPARIN/ 0.45% NACL DRIP 25,000 UNIT/500 ML BAG IV SCH (16:55)
[2021-12-06 17:06] LABS: INR 1.15 (0.87-1.13)
[2021-12-06 17:07] LABS: Partial Thromboplastin Time 30.9 Sec. (24.2-36.6)
[2021-12-06] MEDS: WARFARIN 7.5 MG TAB PO SCH (17:09)
--- NOTE | 2021-12-06 19:39 | Progress Note ---
Assessment and Plan Assessment and plan: 61-year-old female with past medical history of hypertension, asthma, hypothyroidism, currently taking Coumadin for mechanical mitral valve was brought to the emergency room because of headache strokelike symptom. Patient get up from the bed and feels weak. Initial CT scan of the head shows findings concerning for recent infarct in the right frontal lobe. No evidence of acute intracranial hemorrhage. No acute cervical spinal fracture . Subsequently ER doctor discussed the case with neurologist on-call who recommended aspirin 325 mg and admit the patient for further stroke work-up. So going to admit the patient I put the patient on stroke pathway. Aspirin 325 mg p.o. daily Lipitor 40 mg p.o. daily will consult neurology for evaluation also order MRI of the brain MR ray of the brain and neck and patient also has elevated troponin. Will consult cardiology and echocardiogram she reports that she typically follows at [facility] for her medical care. (1) acute right CVA, multifocal infarcts likely from embolism/A. fib Current Visit: Yes Status: Acute Plan to address problem: MRI shows multi focal infarcts in the right hemisphere cortical as well as basal ganglia. MRI brain unremarkable. Left common carotid artery not visible. EKG shows atrial fibrillation, etiology appears to be embolism. Additionally, INR is not therapeutic in the presence of mechanical mitral valve. Echocardiogram shows normal LV wall thickness, LVEF 45%, diastolic function indeterminate, severely dilated left atrium, RV and RV normal size and function. Normal functioning mechanical mitral valve. No significant valvular dysfunction identified. Cardiology initiated IV heparin infusion with approval from neurology. Will need CTA neck versus MRI neck. Continue atorvastatin 40 mg daily and PT OT speech evaluation. Avoid hypotension (2) HTN (hypertension) Current Visit: Yes Status: Acute Plan to address problem: Avoid hypotension in the setting of acute CVA (3) Asthma Current Visit: Yes Status: Acute Plan to address problem: Not in exacerbation. Albuterol via nebulizer every 4 hours as needed (4) mechanical mitral valve Current Visit: Yes Status: Acute Plan to address problem: Regarding patient, she did not have any recent INR checks. INR not therapeutic currently. Started on heparin infusion by cardiology for bridging. Normal functioning mitral valve on echocardiogram. (5) Tobacco abuse Current Visit: Yes Status: Acute Plan to address problem: Patient counseled regarding quitting smoking. Nicotine patch if needed (6) Elevated troponin Current Visit: Yes Status: Acute Plan to address problem: Aspirin 325 mg p.o. daily. Lipitor 40 mg p.o. daily. Due to the serial cardiac enzyme. Nitroglycerin as needed. Normal LV wall thickness on echo. LVEF of 35%. Patient does not complain of stress. Cardiology is evaluating. (7) fall at home Likely from left-sided weakness preceding the fall, no significant traumatic injuries identified on imaging. Currently somnolent, unclear the patient was given the series for imaging studies. We will continue to monitor neurological status closely DVT prophylaxis Current Visit: Yes Status: Acute Plan to address problem: On heparin infusion Pepcid 20 mg IV every 12 hours for GI prophylaxis. Patient is a full code Discussed with the cardiology service History Interval history: Patient is currently very somnolent but arousable. She has a mild left facial and left-sided weakness. BP not elevated. EKG is atrial fibrillation. INR subtherapeutic with a mechanical mitral valve. Troponin mildly elevated but no complaints of chest pains. Cardiology is evaluating and started on IV heparin with the neurology approval Hospitalist Physical - Constitutional Vitals: Temp Pulse Resp BP Pulse Ox 96.7 F L 87 18 128/89 97 12/06/21 16:39 12/06/21 13:07 12/06/21 16:39 12/06/21 16:39 12/06/21 14:50 General appearance: Present: no acute distress, other (Somnolent, arousable, follows simple commands) - EENT Eyes: Present: PERRL, EOM intact ENT: clear oral mucosa - Neck Neck: Present: supple - Respiratory Respiratory effort: normal Respiratory: bilateral: CTA - Cardiovascular Rhythm: other (Controlled A. fib) - Extremities Extremities: No edema - Abdominal General gastrointestinal: soft, non-tender, non-distended - Integumentary Integumentary: Absent: rash - Neurologic Neurologic: other (Patient currently resolved, arousable follows simple commands. Speech occasionally clear. Mild left facial weakness with strength in the left upper and lower extremities 4/5 with a drift.) HEART Score - HEART Score Troponin: Troponin T 0.119 ng/mL (0.00-0.029) H* D 12/06/21 11:19 Results - Labs CBC & Chem 7: 12/07/21 05:08 12/07/21 05:08 Labs: Laboratory Last Values WBC 7.1 K/mm3 (4.5-11.0) 12/06/21 00:55 RBC 5.17 M/mm3 (3.65-5.03) H 12/06/21 00:55 Hgb 13.1 gm/dl (10.1-14.3) 12/06/21 16:20 Hct 37.5 % (30.3-42.9) D 12/06/21 16:20 MCV 89 fl (79-97) 12/06/21 00:55 MCH 28 pg (28-32) 12/06/21 00:55 MCHC 31 % (30-34) 12/06/21 00:55 RDW 14.8 % (13.2-15.2) 12/06/21 00:55 Plt Count 260 K/mm3 (140-440) 12/06/21 16:20 Lymph % (Auto) 20.6 % (13.4-35.0) 12/06/21 00:55 Clark % (Auto) 8.7 % (0.0-7.3) H 12/06/21 00:55 Eos % (Auto) 1.0 % (0.0-4.3) 12/06/21 00:55 Baso % (Auto) 1.2 % (0.0-1.8) 12/06/21 00:55 Lymph # (Auto) 1.5 K/mm3 (1.2-5.4) 12/06/21 00:55 Clark # (Auto) 0.6 K/mm3 (0.0-0.8) 12/06/21 00:55 Eos # (Auto) 0.1 K/mm3 (0.0-0.4) 12/06/21 00:55 Baso # (Auto) 0.1 K/mm3 (0.0-0.1) 12/06/21 00:55 Seg Neutrophils % 68.5 % (40.0-70.0) 12/06/21 00:55 Seg Neutrophils # 4.9 K/mm3 (1.8-7.7) 12/06/21 00:55 PT 15.9 Sec. (12.2-14.9) H 12/06/21 16:20 INR 1.15 (0.87-1.13) H 12/06/21 16:20 APTT 30.9 Sec. (24.2-36.6) 12/06/21 16:20 Sodium 138 mmol/L (137-145) 12/06/21 00:55 Potassium 4.1 mmol/L (3.6-5.0) 12/06/21 00:55 Chloride 104.1 mmol/L (98-107) 12/06/21 00:55 Carbon Dioxide 19 mmol/L (22-30) L 12/06/21 00:55 Anion Gap 19 mmol/L 12/06/21 00:55 BUN 12 mg/dL (7-17) 12/06/21 00:55 Creatinine 1.0 mg/dL (0.6-1.2) 12/06/21 00:55 Estimated GFR > 60 ml/min 12/06/21 00:55 BUN/Creatinine Ratio 12 % 12/06/21 00:55 Glucose 98 mg/dL (65-100) 12/06/21 00:55 Calcium 9.4 mg/dL (8.4-10.2) 12/06/21 00:55 Troponin T 0.119 ng/mL (0.00-0.029) H* D 12/06/21 11:19 Triglycerides 113 mg/dL (2-149) 12/06/21 00:55 Cholesterol 230 mg/dL (50-199) H 12/06/21 00:55 LDL Cholesterol Direct 148 mg/dL (50-130) H 12/06/21 00:55 HDL Cholesterol 63 mg/dL (40-59) H 12/06/21 00:55 Cholesterol/HDL Ratio 3.65 % 12/06/21 00:55 Tripp/IV: Voiding Method Toilet Active Medications - Current Medications Current Medications: Generic Name Dose Route Start Last Admin Trade Name Freq PRN Reason Stop Dose Admin Acetaminophen 650 mg 12/06/21 02:32 Acetaminophen 325 Mg Tab PO Q4H PRN Pain MILD(1-3)/Fever >100.5/PRABHAKAR Albuterol 2.5 mg 12/06/21 02:32 Albuterol 2.5 Mg/3 Ml Nebu IH Q3HRT PRN Shortness Of Breath Albuterol/Ipratropium 1 ampul 12/06/21 08:00 12/06/21 15:14 Ipratropium/Albuterol Sulfate 3 Ml Ampul.Neb IH Not Given Q6HRT [facility] Aspirin 325 mg 12/06/21 10:00 Aspirin 325 Mg Tab PO QDAY [facility] Atorvastatin Calcium 40 mg 12/06/21 22:00 Atorvastatin 40 Mg Tab PO QHS [facility] Famotidine 20 mg 12/06/21 10:00 Famotidine 20 Mg/2 Ml Inj IV BID [facility] Heparin Sodium (Porcine) 2,100 unit 12/06/21 15:47 Heparin 10,000 Units/10 Ml Vial 40 unit/kg (2100 unit) IV Q6H PRN Anti-Xa Assay < 0.1 units/ml Sodium Chloride 1,000 mls @ 100 mls/hr 12/06/21 02:45 Nacl 0.9% 1000 Ml IV DIRECT [facility] Heparin Sodium/Sodium Chloride 25,000 unit in 500 mls @ 15 mls/hr 12/06/21 16:00 Heparin/ 0.45% Nacl-25,000 Unit/500 Ml IV TITR [facility] Protocol 750 UNITS/HR Labetalol HCl 10 mg 12/06/21 02:32 Labetalol 20 Mg/4 Ml Inj IV Q5MIN PRN to maintain SBP < 180 Ondansetron HCl 4 mg 12/06/21 02:32 Ondansetron 4 Mg/2 Ml Inj IV Q8H PRN Nausea And Vomiting Sodium Chloride 10 ml 12/06/21 10:00 Sodium Chloride 0.9% 10 Ml Flush Syringe IV BID [facility] Sodium Chloride 10 ml 12/06/21 02:32 Sodium Chloride 0.9% 10 Ml Flush Syringe IV PRN PRN LINE FLUSH Warfarin Sodium 7.5 mg 12/06/21 17:00 Warfarin 7.5 Mg Tab PO DAILY@1700 [facility]
[2021-12-07 05:36] LABS: Basophils % (Auto) 0.8 % (0.0-1.8); Eosinophils # (Auto) 0.1 K/mm3 (0.0-0.4); Eosinophils % (Auto) 1.5 % (0.0-4.3); Hematocrit 40.2 % (30.3-42.9); Hemoglobin 12.8 gm/dl (10.1-14.3); Lymphocytes # (Auto) 1.5 K/mm3 (1.2-5.4); Lymphocytes % (Auto) 25.3 % (13.4-35.0); Mean Corpuscular HGB Conc 32 % (30-34); Mean Corpuscular Volume 87 fl (79-97); Monocytes # (Auto) 0.6 K/mm3 (0.0-0.8); Monocytes % (Auto) 9.6 % (0.0-7.3); Platelet Count 247 K/mm3 (140-440); Red Blood Count 4.61 M/mm3 (3.65-5.03); Red Cell Distribution Width 14.8 % (13.2-15.2)
[2021-12-07 05:46] LABS: INR 1.36 (0.87-1.13)
[2021-12-07 05:55] LABS: BUN/Creatinine Ratio 16; Blood Urea Nitrogen 16 mg/dL (7-17); Calcium 9.5 mg/dL (8.4-10.2)
[2021-12-07 05:56] LABS: Hemolysis Index 5
[2021-12-07] MEDS: IPRATROPIUM/ALBUTEROL SULFATE 3 ML AMPUL.NEB IH SCH ×3 (09:15→21:21)
--- NOTE | 2021-12-07 10:15 | Electrocardiograph Report ---
[facility] Test Date: 2021-12-07 Test Time: 07:20:29 Pat Name: CONCHA BELL Department: Room: A470 1 Gender: F Manager Commercial: LAWRENCE : 1960 Requested By: MARTHA LOPEZ Order Number: [id number] Reading MD: Saurav Menchaca Measurements Intervals [place] Rate: 82 P: [place]: QRS: -72 QRSD: 83 T: 93 QT: 394 QTc: 461 Interpretive Statements Atrial fibrillation Left anterior fascicular block Probable left ventricular hypertrophy Nonspecific T abnormalities, lateral leads ST elevation, consider inferior injury Compared to ECG 12/06/2021 00:47:34 no significant change noted. Electronically Signed On 12-07-2021 10:15:33 EST by Saurav Menchaca
[2021-12-07] MEDS: FAMOTIDINE 20 MG/2 ML INJ IV SCH ×2 (10:32→22:11)
[2021-12-07] MEDS: ASPIRIN 325 MG TAB PO SCH (10:32)
--- NOTE | 2021-12-07 11:15 | Progress Note ---
Assessment and Plan Assessment and Plan 61-year-old female with past medical history of hypertension, asthma, hypothyroidism, currently taking Coumadin for mechanical mitral valve was brought to the emergency room because of headache strokelike symptom. Patient get up from the bed and feels weak. Initial CT scan of the head shows findings concerning for recent infarct in the right frontal lobe. No evidence of acute intracranial hemorrhage. No acute cervical spinal fracture . - Patient Problems # CVA (cerebral vascular accident) -new onst noted yesterday by pt. -Ct brain possible right frontal hypodensity -she is not a candidate for TPA nor thrombectomy -she is on coumadin with INR#1.22 subtherapeutic -she is with poor compliance with her medications -today NIH#3 -echo is remarkable for left dilated atrium with Ef#45-50% no thrombus is noted -Hx of AF -LDL#148 -started on ASA#81mg and lipitor #40 mg -coumadin is on hold -MRI brain showed right basal ganglia and right frontal infarct , no hemorrhage -MRA brain no large vesseles involvment is noted -US carotid is pending -Pt/ST evaluate #HTN (hypertension) -Labetalol 10 mg IV every 6 hours as needed. We will continue the home medication # Asthma -Oxygen via nasal cannula 3 L/min. DuoNeb by nebulizer every 4 hours. Albuterol via nebulizer every 4 hours as needed # Mitral valve disorder -Patient has history of mitral valve surgery on Coumadin as per note with subtherapeutic PT/INR. -no objection to resume coumadine -INR>3 # Atrial fibrillation -controlled rate -echo with dilated left atrium -on coumadine with subtherapeutic INR#1.22--1.46 -no objection to restart coumadine -she is bridged with IV heparin # Elevated troponin Current Visit: Yes Status: Acute Plan to address problem: Aspirin 325 mg p.o. daily. Lipitor 40 mg p.o. daily. Due to the serial cardiac enzyme. Nitroglycerin as needed. - Echocardiogramis noted # Tobacco abuse -Patient counseled regarding quitting smoking. Nicotine patch if needed # DVT prophylaxis -SCD for DVT prophylaxis. Pepcid 20 mg IV every 12 hours for GI prophylaxis. Patient is a full code will sign off Subjective Date of service: 12/07/21 Principal diagnosis: left side weakness Interval history: doing better today more alert interactive, wants to go home she is on heparin IV to bridge to coumadine INR today is #1.36 Objective - Vital Sign Vital Signs - 12hr 12/06/21 12/07/21 12/07/21 23:11 04:17 08:00 Temperature 98.1 F 98.0 F Pulse Rate 63 77 Pulse Rate [ 98 H Anterior] Respiratory 16 16 Rate Respiratory 16 Rate [Anterior] Blood Pressure 103/71 134/82 O2 Sat by Pulse 99 100 Oximetry 12/07/21 08:01 Temperature 97.6 F Pulse Rate Pulse Rate [ Anterior] Respiratory 16 Rate Respiratory Rate [Anterior] Blood Pressure 125/81 O2 Sat by Pulse Oximetry - General Apperance Constitutional: comfortable - EENT EENT: PERRL, mucous membranes moist - Respiratory Respiratory: chest non-tender, lungs clear, rhonchi - Cardiovascular Cardiovascular: other (irregular) Extremities: no peripheral edema bilat, no clubbing, cyanosis - Gastrointestinal Gastrointestinal: normoactive bowel sounds - Integumentary Integumentary: normal - Neurologic Cranial nerve examination: PERRL, EOMI, facial droop Speech examination: intact Detailed motor examination: other (slight left side weakness upper and lower4- /5, gait not done) - Laboratory Findings CBC and BMP: 12/07/21 05:08 12/07/21 05:08 Abnormal Lab Findings: Abnormal Labs 12/06/21 12/06/21 12/06/21 00:55 00:55 00:55 RBC 5.17 H Hgb 14.4 H Hct 45.8 H [place] % (Auto) 8.7 H PT 16.7 H INR 1.22 H Heparin Anti-Xa Level Carbon Dioxide 19 L Glucose Troponin T Cholesterol LDL Cholesterol Direct HDL Cholesterol 12/06/21 12/06/21 12/06/21 00:55 11:19 16:20 RBC Hgb Hct [place] % (Auto) PT 15.9 H INR 1.15 H Heparin Anti-Xa Level Carbon Dioxide Glucose Troponin T 0.188 H* 0.119 H* D Cholesterol 230 H LDL Cholesterol Direct 148 H HDL Cholesterol 63 H 12/07/21 12/07/21 12/07/21 01:36 05:08 05:08 RBC Hgb Hct [place] % (Auto) 9.6 H PT 18.1 H INR 1.36 H Heparin Anti-Xa Level < 0.10 L Carbon Dioxide Glucose Troponin T Cholesterol LDL Cholesterol Direct HDL Cholesterol 12/07/21 05:08 RBC Hgb Hct [place] % (Auto) PT INR Heparin Anti-Xa Level Carbon Dioxide 18 L Glucose 138 H Troponin T Cholesterol LDL Cholesterol Direct HDL Cholesterol
[2021-12-07] MEDS ORDERED: ASPIRIN 325 MG TAB PO SCH (12:05)
--- NOTE | 2021-12-07 12:57 | Progress Note ---
Assessment and Plan Patient is a 61-year-old female with a past medical history of hypertension, A. fib, CHF, mechanical mitral valve, hypothyroidism who came to the ED for a fall overnight Acute CVA-neurology following NSTEMI A. fib Hypertension S/p mechanical mitral valve replacement Subtherapeutic INR Asthma Hypothyroidism Cardiomyopathy HFrEF Echo 12/06/2021-EF 45 to 50%. Left ventricular diastolic function is indeterminate. Right ventricular systolic function is mildly reduced. Left atrium is severely dilated. Bubble study does not demonstrate PFO. Mechanical mitral valve appears normal no significant gradient noted across mitral valve difficult to evaluate for mitral regurgitation Plan: EKG shows A. fib rate 95 with PVCs, left anterior fascicular block, probable LVH and prolonged QT. No acute ischemic changes troponins noted to be elevated however patient denies any complaints of chest pain shortness of breath or any other cardiac symptoms Unclear as to reason patient has elevated troponin however due to lack of cardiac complaints suspect NSTEMI type II Due to patient's history of A. fib and mechanical mitral valve strongly recommend patient to be anticoagulated with heparin and bridged with Coumadin due to patient being high risk for thrombotic event. Per documentation neurology has no objection to resuming anticoagulation. INR remains subtherapeutic continue heparin drip and bridge with Coumadin. Pharmacy to dose Coumadin Patient reports being on metoprolol as an outpatient. Will initiate metoprolol 25 mg p.o. twice daily Patient seen in conjunction with who agrees with this plan of care - Patient Problems (1) Asthma Current Visit: Yes Status: Acute (2) CVA (cerebral vascular accident) Current Visit: Yes Status: Acute (3) Elevated troponin Current Visit: Yes Status: Acute (4) HTN (hypertension) Current Visit: Yes Status: Acute (5) Mitral valve disorder Current Visit: Yes Status: Acute (6) Right shoulder pain Current Visit: Yes Status: Acute (7) Tobacco abuse Current Visit: Yes Status: Acute Subjective Date of service: 12/07/21 Principal diagnosis: left side weakness Interval history: Patient resting in bed in no acute distress Patient remains in A. fib rate trending 80s to 90s Objective Vital Signs Temp Pulse Pulse Resp Resp BP BP 12/07/21 11:56 97.6 F 18 134/97 12/07/21 08:01 97.6 F 16 125/81 12/07/21 08:00 98 H 16 12/07/21 04:17 98.0 F 77 16 134/82 12/06/21 23:11 98.1 F 63 16 103/71 12/06/21 21:55 12/06/21 20:00 100 H 20 12/06/21 19:52 98.4 F 60 19 114/69 12/06/21 19:14 82 16 12/06/21 16:39 96.7 F L 18 128/89 12/06/21 14:50 20 12/06/21 13:07 99.8 F H 87 16 122/90 Pulse Ox 12/07/21 11:56 12/07/21 08:01 12/07/21 08:00 12/07/21 04:17 100 12/06/21 23:11 99 12/06/21 21:55 98 12/06/21 20:00 97 12/06/21 19:52 99 12/06/21 19:14 12/06/21 16:39 12/06/21 14:50 97 12/06/21 13:07 97 - Physical Examination General: No Apparent Distress HEENT: Positive: PERRL Neck: Positive: trachea midline Cardiac: Positive: irregularly irregular Lungs: Positive: Normal Breath Sounds Neuro: Positive: Grossly Intact Abdomen: Positive: Soft, Active Bowel Sounds Skin: Negative: Rash, Suspicious Lesions, Ulceration Extremities: Present: upper extr. pulses. Absent: edema - Labs and Meds Coagulation 12/06/21 12/07/21 Range/Units 16:20 05:08 PT 15.9 H 18.1 H (12.2-14.9) Sec. INR 1.15 H 1.36 H (0.87-1.13) APTT 30.9 (24.2-36.6) Sec. CBC 12/06/21 12/07/21 Range/Units 16:20 05:08 WBC 6.1 (4.5-11.0) K/mm3 RBC 4.61 (3.65-5.03) M/mm3 Hgb 13.1 12.8 (10.1-14.3) gm/dl Hct 37.5 D 40.2 (30.3-42.9) % Plt Count 260 247 (140-440) K/mm3 Lymph # (Auto) 1.5 (1.2-5.4) K/mm3 [place] # (Auto) 0.6 (0.0-0.8) K/mm3 Eos # (Auto) 0.1 (0.0-0.4) K/mm3 Baso # (Auto) 0.0 (0.0-0.1) K/mm3 Comprehensive Metabolic Panel 12/07/21 Range/Units 05:08 Sodium 140 (137-145) mmol/L Potassium 3.9 (3.6-5.0) mmol/L Chloride 106.8 (98-107) mmol/L Carbon Dioxide 18 L (22-30) mmol/L BUN 16 (7-17) mg/dL Creatinine 1.0 (0.6-1.2) mg/dL Glucose 138 H (65-100) mg/dL Calcium 9.5 (8.4-10.2) mg/dL - Imaging and Cardiology Echo: report reviewed - Telemetry EKG Rhythm: Atrial Fibrillation - EKG Supraventricular dysrhythmia: atrial fibrillation Ventricular dysrhythmias: ventricular premature com Repolarization changes or abnormalities: Q-T interval prolongation
[2021-12-07] MEDS: WARFARIN 7.5 MG TAB PO SCH (18:21)
[2021-12-07] MEDS: METOPROLOL TARTRATE 25 MG TAB PO SCH ×2 (18:21→22:11)
--- NOTE | 2021-12-07 19:19 | Progress Note ---
Assessment and Plan Assessment and plan: 61-year-old female with past medical history of hypertension, asthma, hypothyroidism, currently taking Coumadin for mechanical mitral valve was brought to the emergency room because of headache strokelike symptom. Patient get up from the bed and feels weak. Initial CT scan of the head shows findings concerning for recent infarct in the right frontal lobe. No evidence of acute intracranial hemorrhage. No acute cervical spinal fracture . Subsequently ER doctor discussed the case with neurologist on-call who recommended aspirin 325 mg and admit the patient for further stroke work-up. So going to admit the patient I put the patient on stroke pathway. Aspirin 325 mg p.o. daily Lipitor 40 mg p.o. daily will consult neurology for evaluation also order MRI of the brain MR ray of the brain and neck and patient also has elevated troponin. Will consult cardiology and echocardiogram she reports that she typically follows at [place] for her medical care. (1) acute right CVA, multifocal infarcts likely from embolism/A. fib Current Visit: Yes Status: Acute Plan to address problem: MRI shows multi focal infarcts in the right hemisphere cortical as well as basal ganglia. MRI brain unremarkable. Duplex carotid ultrasound shows no significant stenosis. 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 May need CTA neck versus MRI neck for further evaluation. EKG shows atrial fibrillation, etiology appears to be embolism. Additionally, INR is not therapeutic in the presence of mechanical mitral valve. Echocardiogram shows normal LV wall thickness, LVEF 45%, diastolic function indeterminate, severely dilated left atrium, RV and RV normal size and function. Normal functioning mechanical mitral valve. No significant valvular dy sfunction identified. Cardiology initiated IV heparin infusion with approval from neurology. Continue atorvastatin 40 mg daily and PT OT speech evaluation. Mild left facial weakness and left upper and lower extremity weakness rapidly improving, and ambulating well Avoid hypotension (2) HTN (hypertension) Current Visit: Yes Status: Acute Plan to address problem: Avoid hypotension in the setting of acute CVA (3) Asthma Current Visit: Yes Status: Acute Plan to address problem: Not in exacerbation. Albuterol via nebulizer every 4 hours as needed (4) mechanical mitral valve Current Visit: Yes Status: Acute Plan to address problem: Regarding patient, she did not have any recent INR checks. INR not therapeutic currently. Started on heparin infusion by cardiology for bridging. Normal functioning mitral valve on echocardiogram. (5) Tobacco abuse Current Visit: Yes Status: Acute Plan to address problem: Patient counseled regarding quitting smoking. Nicotine patch if needed (6) Elevated troponin Current Visit: Yes Status: Acute Plan to address problem: Aspirin 325 mg p.o. daily. Lipitor 40 mg p.o. daily. Due to the serial cardiac enzyme. Nitroglycerin as needed. Normal LV wall thickness on echo. LVEF of 35%. Patient does not complain of stress. Cardiology is evaluating. (7) fall at home Likely from left-sided weakness preceding the fall, no significant traumatic i njuries identified on imaging. Currently somnolent, unclear the patient was given the series for imaging studies. We will continue to monitor neurological status closely DVT prophylaxis Current Visit: Yes Status: Acute Plan to address problem: On heparin infusion Pepcid 20 mg IV every 12 hours for GI prophylaxis. Patient is a full code Discussed with the patient and the nursing staff History Interval history: Patient reports improvement of left facial and to arm/leg weakness. Patient with chest pains, dyspnea or palpitation. She is on heparin drip to bridge. She is ambulating. Hospitalist Physical - Constitutional Vitals: Temp Pulse Resp BP Pulse Ox 96.8 F L 76 18 118/66 98 12/07/21 16:03 12/07/21 18:21 12/07/21 16:03 12/07/21 16:03 12/07/21 08:00 General appearance: Present: no acute distress - EENT Eyes: Present: PERRL, EOM intact ENT: other (Left lower facial weakness resolving) - Neck Neck: Present: supple - Respiratory Respiratory effort: normal Respiratory: bilateral: CTA - Cardiovascular Rhythm: irregularly irregular - Extremities Extremities: No edema - Abdominal General gastrointestinal: soft, non-tender, non-distended - Integumentary Integumentary: Absent: rash - Psychiatric Psychiatric: appropriate mood/affect - Neurologic Neurologic: other (Left lower facial weakness resolving, strength in left upper and lower extremities -5/5. Ambulating.) HEART Score - HEART Score Troponin: Troponin T 0.119 ng/mL (0.00-0.029) H* D 12/06/21 11:19 Results - Labs CBC & Chem 7: 12/10/21 05:17 12/07/21 05:08 Labs: Laboratory Last Values WBC 6.1 K/mm3 (4.5-11.0) 12/07/21 05:08 RBC 4.61 M/mm3 (3.65-5.03) 12/07/21 05:08 Hgb 12.8 gm/dl (10.1-14.3) 12/07/21 05:08 Hct 40.2 % (30.3-42.9) 12/07/21 05:08 MCV 87 fl (79-97) 12/07/21 05:08 MCH 28 pg (28-32) 12/07/21 05:08 MCHC 32 % (30-34) 12/07/21 05:08 RDW 14.8 % (13.2-15.2) 12/07/21 05:08 Plt Count 247 K/mm3 (140-440) 12/07/21 05:08 Lymph % (Auto) 25.3 % (13.4-35.0) 12/07/21 05:08 [place] % (Auto) 9.6 % (0.0-7.3) H 12/07/21 05:08 Eos % (Auto) 1.5 % (0.0-4.3) 12/07/21 05:08 Baso % (Auto) 0.8 % (0.0-1.8) 12/07/21 05:08 Lymph # (Auto) 1.5 K/mm3 (1.2-5.4) 12/07/21 05:08 [place] # (Auto) 0.6 K/mm3 (0.0-0.8) 12/07/21 05:08 Eos # (Auto) 0.1 K/mm3 (0.0-0.4) 12/07/21 05:08 Baso # (Auto) 0.0 K/mm3 (0.0-0.1) 12/07/21 05:08 Seg Neutrophils % 62.8 % (40.0-70.0) 12/07/21 05:08 Seg Neutrophils # 3.8 K/mm3 (1.8-7.7) 12/07/21 05:08 PT 18.1 Sec. (12.2-14.9) H 12/07/21 05:08 INR 1.36 (0.87-1.13) H 12/07/21 05:08 APTT 30.9 Sec. (24.2-36.6) 12/06/21 16:20 Heparin Anti-Xa Level 0.40 U.I./ml (0.3-0.7) 12/07/21 10:05 Sodium 140 mmol/L (137-145) 12/07/21 05:08 Potassium 3.9 mmol/L (3.6-5.0) 12/07/21 05:08 Chloride 106.8 mmol/L (98-107) 12/07/21 05:08 Carbon Dioxide 18 mmol/L (22-30) L 12/07/21 05:08 Anion Gap 19 mmol/L 12/07/21 05:08 BUN 16 mg/dL (7-17) 12/07/21 05:08 Creatinine 1.0 mg/dL (0.6-1.2) 12/07/21 05:08 Estimated GFR > 60 ml/min 12/07/21 05:08 BUN/Creatinine Ratio 16 % 12/07/21 05:08 Glucose 138 mg/dL (65-100) H 12/07/21 05:08 POC Glucose 116 mg/dL (70-105) H 12/07/21 16:02 Calcium 9.5 mg/dL (8.4-10.2) 12/07/21 05:08 Troponin T 0.119 ng/mL (0.00-0.029) H* D 12/06/21 11:19 Triglycerides 113 mg/dL (2-149) 12/06/21 00:55 Cholesterol 230 mg/dL (50-199) H 12/06/21 00:55 LDL Cholesterol Direct 148 mg/dL (50-130) H 12/06/21 00:55 HDL Cholesterol 63 mg/dL (40-59) H 12/06/21 00:55 Cholesterol/HDL Ratio 3.65 % 12/06/21 00:55 Tripp/IV: Voiding Method Toilet Active Medications - Current Medications Current Medications: Generic Name Dose Route Start Last Admin Trade Name Freq PRN Reason Stop Dose Admin Acetaminophen 650 mg 12/06/21 02:32 Acetaminophen 325 Mg Tab PO Q4H PRN Pain MILD(1-3)/Fever >100.5/PRABHAKAR Albuterol 2.5 mg 12/06/21 02:32 Albuterol 2.5 Mg/3 Ml Nebu IH Q3HRT PRN Shortness Of Breath Albuterol/Ipratropium 1 ampul 12/07/21 08:00 12/07/21 16:19 Ipratropium/Albuterol Sulfate 3 Ml Ampul.Neb IH 1 ampul TIDRT GERSON Administration Aspirin 81 mg 12/08/21 10:00 Aspirin 81 Mg Tab Chew PO QDAY GERSON Atorvastatin Calcium 40 mg 12/06/21 22:00 12/06/21 22:05 Atorvastatin 40 Mg Tab PO 40 mg QHS GERSON Administration Famotidine 20 mg 12/06/21 10:00 12/07/21 10:32 Famotidine 20 Mg/2 Ml Inj IV 20 mg BID GERSON Administration Sodium Chloride 1,000 mls @ 100 mls/hr 12/06/21 02:45 Nacl 0.9% 1000 Ml IV DIRECT GERSON Heparin Sodium/Sodium Chloride 25,000 unit in 500 mls @ 15 mls/hr 12/06/21 16:00 12/07/21 02:54 Heparin/ 0.45% Nacl-25,000 Unit/500 Ml IV 850 units/hr TITR GERSON 17 mls/hr Titration Protocol 750 UNITS/HR Metoprolol Tartrate 25 mg 12/07/21 14:00 12/07/21 18:21 Metoprolol Tartrate 25 Mg Tab PO 25 mg BID GERSON Administration Ondansetron HCl 4 mg 12/06/21 02:32 Ondansetron 4 Mg/2 Ml Inj IV Q8H PRN Nausea And Vomiting Sodium Chloride 10 ml 12/06/21 10:00 12/07/21 10:33 Sodium Chloride 0.9% 10 Ml Flush Syringe IV 10 ml BID GERSON Administration Sodium Chloride 10 ml 12/06/21 02:32 Sodium Chloride 0.9% 10 Ml Flush Syringe IV PRN PRN LINE FLUSH Warfarin Sodium 7.5 mg 12/06/21 17:00 12/07/21 18:21 Warfarin 7.5 Mg Tab PO 7.5 mg DAILY@1700 GERSON Administration Nutrition/Malnutrition Assess - Dietary Evaluation Nutrition/Malnutrition Findings: Nutrition Notes Start: 12/07/21 12:02 Freq: Status: Active Protocol: Document 12/07/21 12:02 JENNIFER (Rec: 12/07/21 12:14 JENNIFER [id number]) Nutrition Notes Initial or Follow up Assessment Current Diagnosis Hypertension,Stroke Other Pertinent Diagnosis Atriasl Fibrilation, s/p Mechanical Mytral Valve, Asthma, Hypothyroidism. Current Diet Cardiac Diet (since L 12/06). Labs/Tests 12/07: CO2 18, Glu 138. Pertinent Medications 12/07: Warfarin 7.5 mg PO, others nutritionally unremarkable. Height 5 ft 4 in Weight 53 kg [place] Body Weight (kg) 54.54 BMI 20.0 Intake Prior to Admission Good Weight change and time frame Pt denies having unintentionally loss body weight [employer]. Weight Status Appropriate Subjective/Other Information RD consult for Wafarine use assessment. Pt has been Warfarine user since she got her Mechanical Mytral Valbe placed, not date available. Pt not a candidate for Nutrition Education. No reports available on Pt's PO intake of meals at the time . Percent of energy/protein needs met: Prescribed Cardiac Diet provides for energy/protein needs (2,230 Kcal/85 g) during LOS. Burn Absent Trauma Absent GI Symptoms None Food Allergy No Skin Integrity/Comment Assessment WNL. Minimum of two criteria No #1 Nutrition Diagnosis No nutrition diagnosis at this time Is patient on ventilator? No Is Patient Ambulatory and/or Out of Bed Yes REE-([place]-ambulatory/OOB) [ 1397.500 NUTR.MSJOOB] Calculation Used for Recommendations [place] or Additional Notes Protein: 0.8-1 g/Kg; 42-53 g/ day. Fluids: 1 ml/Kcal, or as per MD. Nutrition Intervention Follow-Up By: 12/14/21 Additional Comments Continue monitoring food tolerance, %PO intake of meals , and BM.
[2021-12-08 05:00] LABS: Hematocrit 36.9 % (30.3-42.9); Hemoglobin 12.4 gm/dl (10.1-14.3)
[2021-12-08 05:09] LABS: INR 1.49 (0.87-1.13)
[2021-12-08] MEDS: HEPARIN/ 0.45% NACL DRIP 25,000 UNIT/500 ML BAG IV SCH (06:15)
[2021-12-08] MEDS: ACETAMINOPHEN 325 MG TAB PO PRN (08:49)
[2021-12-08] MEDS: IPRATROPIUM/ALBUTEROL SULFATE 3 ML AMPUL.NEB IH SCH ×3 (09:07→20:44)
[2021-12-08] MEDS: ASPIRIN 81 MG TAB CHEW PO SCH (09:07)
[2021-12-08] MEDS: FAMOTIDINE 20 MG/2 ML INJ IV SCH ×2 (09:07→21:57)
[2021-12-08] MEDS: METOPROLOL TARTRATE 25 MG TAB PO SCH ×2 (09:07→21:57)
--- NOTE | 2021-12-08 11:47 | Progress Note ---
Assessment and Plan Acute CVA NSTEMI Type II Subtherapeutic INR S/p mechanical mitral valve replacement A. fib Hypertension Asthma Hypothyroidism Cardiomyopathy HFpEF 45-50% Echo 12/06/2021-EF 45 to 50%. Left ventricular diastolic function is indeterminate. Right ventricular systolic function is mildly reduced. Left atrium is severely dilated. Bubble study does not demonstrate PFO. Mechanical mitral valve appears normal no significant gradient noted across mitral valve difficult to evaluate for mitral regurgitation Plan: Bridge heparin/Coumadin--> goal INR 2.5-3.5 Subjective Date of service: 12/08/21 Principal diagnosis: left side weakness Interval history: Patient sitting up in bed without complaints Objective Vital Signs Temp Pulse Pulse Resp Resp BP Pulse Ox 12/08/21 09:07 91 H 18 100 12/08/21 08:49 18 12/08/21 08:00 20 97 12/08/21 07:52 97.8 F 72 18 147/91 100 12/08/21 04:44 75 100 12/08/21 00:27 97.8 F 76 18 125/82 100 12/07/21 22:35 100 12/07/21 21:21 77 16 12/07/21 20:03 98.4 F 82 17 123/80 100 12/07/21 20:00 20 97 12/07/21 18:21 76 12/07/21 16:03 96.8 F L 18 118/66 12/07/21 14:00 77 14 12/07/21 12:00 77 12/07/21 11:56 97.6 F 18 134/97 - Physical Examination General: No Apparent Distress HEENT: Positive: PERRL Neck: Positive: trachea midline Cardiac: Positive: Regular Rate Lungs: Positive: clear to auscultation Neuro: Positive: Grossly Intact Abdomen: Positive: Soft, Active Bowel Sounds Skin: Negative: Rash, Suspicious Lesions, Ulceration Extremities: Present: upper extr. pulses. Absent: edema - Labs and Meds Coagulation 12/08/21 Range/Units 04:22 PT 19.8 H (12.2-14.9) Sec. INR 1.49 H (0.87-1.13) CBC 12/08/21 Range/Units 04:22 Hgb 12.4 (10.1-14.3) gm/dl Hct 36.9 (30.3-42.9) % Plt Count 322 (140-440) K/mm3 - Imaging and Cardiology Echo: report reviewed - EKG Ventricular dysrhythmias: ventricular premature com Repolarization changes or abnormalities: Q-T interval prolongation
[2021-12-08] MEDS: WARFARIN 7.5 MG TAB PO SCH (16:15)
--- NOTE | 2021-12-08 17:19 | Progress Note ---
Assessment and Plan Assessment and plan: 61-year-old female with past medical history of hypertension, asthma, hypothyroidism, currently taking Coumadin for mechanical mitral valve was brought to the emergency room because of headache strokelike symptom. Patient get up from the bed and feels weak. Initial CT scan of the head shows findings concerning for recent infarct in the right frontal lobe. No evidence of acute intracranial hemorrhage. No acute cervical spinal fracture . Subsequently ER doctor discussed the case with neurologist on-call who recommended aspirin 325 mg and admit the patient for further stroke work-up. So going to admit the patient I put the patient on stroke pathway. Aspirin 325 mg p.o. daily Lipitor 40 mg p.o. daily will consult neurology for evaluation also order MRI of the brain MR ray of the brain and neck and patient also has elevated troponin. Will consult cardiology and echocardiogram she reports that she typically follows at [place] for her medical care. (1) acute right CVA, multifocal infarcts likely from embolism/A. fib Current Visit: Yes Status: Acute Plan to address problem: MRI shows multi focal infarcts in the right hemisphere cortical as well as basal ganglia. MRI brain unremarkable. Left common carotid artery not visible. EKG shows atrial fibrillation, etiology appears to be embolism. Additionally, INR is not therapeutic in the presence of mechanical mitral valve. Echocardiogram shows normal LV wall thickness, LVEF 45%, diastolic function indeterminate, severely dilated left atrium, RV and RV normal size and function. Normal functioning mechanical mitral valve. No significant valvular dysfunction identified. Cardiology initiated IV heparin infusion with approval from neurology. Will need CTA neck versus MRI neck. Continue atorvastatin 40 mg daily and PT OT speech evaluation. Avoid hypotension (2) HTN (hypertension) Current Visit: Yes Status: Acute Plan to address problem: Avoid hypotension in the setting of acute CVA (3) Asthma Current Visit: Yes Status: Acute Plan to address problem: Not in exacerbation. Albuterol via nebulizer every 4 hours as needed (4) mechanical mitral valve Current Visit: Yes Status: Acute Plan to address problem: Regarding patient, she did not have any recent INR checks. INR not therapeutic currently. Started on heparin infusion by cardiology for bridging. Normal functioning mitral valve on echocardiogram. (5) Tobacco abuse Current Visit: Yes Status: Acute Plan to address problem: Patient counseled regarding quitting smoking. Nicotine patch if needed (6) Elevated troponin Current Visit: Yes Status: Acute Plan to address problem: Aspirin 325 mg p.o. daily. Lipitor 40 mg p.o. daily. Due to the serial cardiac enzyme. Nitroglycerin as needed. Normal LV wall thickness on echo. LVEF of 35%. Patient does not complain of stress. Cardiology is evaluating. (7) fall at home Likely from left-sided weakness preceding the fall, no significant traumatic injuries identified on imaging. Currently somnolent, unclear the patient was given the series for imaging studies. We will continue to monitor neurological status closely DVT prophylaxis Current Visit: Yes Status: Acute Plan to address problem: On heparin infusion Pepcid 20 mg IV every 12 hours for GI prophylaxis. Patient is a full code Discussed with the cardiology service History Interval history: Patient reports significant improvement of left facial weakness and able to ambulate without much difficulty. Vital signs stable. Remains on the heparin infusion to bridge for subtherapeutic INR. Evidence of bleeding. The only complaint she has is her constipation. Hospitalist Physical - Constitutional Vitals: Temp Pulse Resp BP Pulse Ox 97.8 F 85 18 125/67 100 12/08/21 15:19 12/08/21 15:19 12/08/21 15:19 12/08/21 15:19 12/08/21 15:19 General appearance: Present: no acute distress - EENT Eyes: Present: PERRL, EOM intact ENT: hearing intact - Neck Neck: Present: supple - Respiratory Respiratory effort: normal Respiratory: bilateral: CTA - Cardiovascular Rhythm: irregularly irregular - Extremities Extremities: No edema - Abdominal General gastrointestinal: soft, non-tender, non-distended - Psychiatric Psychiatric: appropriate mood/affect - Neurologic Neurologic: other (Alert/oriented, normal speech, left facial weakness almost resolved. Strength in left upper and lower extremities: -5/5. Stable gait.) HEART Score - HEART Score Troponin: Troponin T 0.119 ng/mL (0.00-0.029) H* D 12/06/21 11:19 Results - Labs CBC & Chem 7: 12/10/21 05:17 12/07/21 05:08 Labs: Laboratory Last Values WBC 6.1 K/mm3 (4.5-11.0) 12/07/21 05:08 RBC 4.61 M/mm3 (3.65-5.03) 12/07/21 05:08 Hgb 12.4 gm/dl (10.1-14.3) 12/08/21 04:22 Hct 36.9 % (30.3-42.9) 12/08/21 04:22 MCV 87 fl (79-97) 12/07/21 05:08 MCH 28 pg (28-32) 12/07/21 05:08 MCHC 32 % (30-34) 12/07/21 05:08 RDW 14.8 % (13.2-15.2) 12/07/21 05:08 Plt Count 322 K/mm3 (140-440) 12/08/21 04:22 Lymph % (Auto) 25.3 % (13.4-35.0) 12/07/21 05:08 [place] % (Auto) 9.6 % (0.0-7.3) H 12/07/21 05:08 Eos % (Auto) 1.5 % (0.0-4.3) 12/07/21 05:08 Baso % (Auto) 0.8 % (0.0-1.8) 12/07/21 05:08 Lymph # (Auto) 1.5 K/mm3 (1.2-5.4) 12/07/21 05:08 [place] # (Auto) 0.6 K/mm3 (0.0-0.8) 12/07/21 05:08 Eos # (Auto) 0.1 K/mm3 (0.0-0.4) 12/07/21 05:08 Baso # (Auto) 0.0 K/mm3 (0.0-0.1) 12/07/21 05:08 Seg Neutrophils % 62.8 % (40.0-70.0) 12/07/21 05:08 Seg Neutrophils # 3.8 K/mm3 (1.8-7.7) 12/07/21 05:08 PT 19.8 Sec. (12.2-14.9) H 12/08/21 04:22 INR 1.49 (0.87-1.13) H 12/08/21 04:22 APTT 30.9 Sec. (24.2-36.6) 12/06/21 16:20 Heparin Anti-Xa Level 0.70 U.I./ml (0.3-0.7) 12/08/21 13:18 Sodium 140 mmol/L (137-145) 12/07/21 05:08 Potassium 3.9 mmol/L (3.6-5.0) 12/07/21 05:08 Chloride 106.8 mmol/L (98-107) 12/07/21 05:08 Carbon Dioxide 18 mmol/L (22-30) L 12/07/21 05:08 Anion Gap 19 mmol/L 12/07/21 05:08 BUN 16 mg/dL (7-17) 12/07/21 05:08 Creatinine 1.0 mg/dL (0.6-1.2) 12/07/21 05:08 Estimated GFR > 60 ml/min 12/07/21 05:08 BUN/Creatinine Ratio 16 % 12/07/21 05:08 Glucose 138 mg/dL (65-100) H 12/07/21 05:08 POC Glucose 136 mg/dL (70-105) H 12/08/21 16:22 Calcium 9.5 mg/dL (8.4-10.2) 12/07/21 05:08 Troponin T 0.119 ng/mL (0.00-0.029) H* D 12/06/21 11:19 Triglycerides 113 mg/dL (2-149) 12/06/21 00:55 Cholesterol 230 mg/dL (50-199) H 12/06/21 00:55 LDL Cholesterol Direct 148 mg/dL (50-130) H 12/06/21 00:55 HDL Cholesterol 63 mg/dL (40-59) H 12/06/21 00:55 Cholesterol/HDL Ratio 3.65 % 12/06/21 00:55 Tripp/IV: Voiding Method Toilet Active Medications - Current Medications Current Medications: Generic Name Dose Route Start Last Admin Trade Name Freq PRN Reason Stop Dose Admin Acetaminophen 650 mg 12/06/21 02:32 12/08/21 08:49 Acetaminophen 325 Mg Tab PO 650 mg Q4H PRN Administration Pain MILD(1-3)/Fever >100.5/PRABHAKAR Albuterol 2.5 mg 12/06/21 02:32 Albuterol 2.5 Mg/3 Ml Nebu IH Q3HRT PRN Shortness Of Breath Albuterol/Ipratropium 1 ampul 12/07/21 08:00 12/08/21 14:25 Ipratropium/Albuterol Sulfate 3 Ml Ampul.Neb IH 1 ampul TIDRT GERSON Administration Aspirin 81 mg 12/08/21 10:00 12/08/21 09:07 Aspirin 81 Mg Tab Chew PO 81 mg QDAY GERSON Administration Atorvastatin Calcium 40 mg 12/06/21 22:00 12/07/21 22:11 Atorvastatin 40 Mg Tab PO 40 mg QHS GERSON Administration Famotidine 20 mg 12/06/21 10:00 12/08/21 09:07 Famotidine 20 Mg/2 Ml Inj IV 20 mg BID GERSON Administration Sodium Chloride 1,000 mls @ 100 mls/hr 12/06/21 02:45 Nacl 0.9% 1000 Ml IV DIRECT GERSON Heparin Sodium/Sodium Chloride 25,000 unit in 500 mls @ 15 mls/hr 12/06/21 16:00 12/08/21 15:06 Heparin/ 0.45% Nacl-25,000 Unit/500 Ml IV 800 units/hr TITR GERSON 16 mls/hr Titration Protocol 750 UNITS/HR Metoprolol Tartrate 25 mg 12/07/21 14:00 12/08/21 09:07 Metoprolol Tartrate 25 Mg Tab PO 25 mg BID GERSON Administration Ondansetron HCl 4 mg 12/06/21 02:32 Ondansetron 4 Mg/2 Ml Inj IV Q8H PRN Nausea And Vomiting Sodium Chloride 10 ml 12/06/21 10:00 12/08/21 09:07 Sodium Chloride 0.9% 10 Ml Flush Syringe IV 10 ml BID GERSON Administration Sodium Chloride 10 ml 12/06/21 02:32 Sodium Chloride 0.9% 10 Ml Flush Syringe IV PRN PRN LINE FLUSH Warfarin Sodium 7.5 mg 12/06/21 17:00 12/08/21 16:15 Warfarin 7.5 Mg Tab PO 7.5 mg DAILY@1700 GERSON Administration Nutrition/Malnutrition Assess - Dietary Evaluation Nutrition/Malnutrition Findings: Nutrition Notes Start: 12/07/21 12:02 Freq: Status: Active Protocol: Document 12/07/21 12:02 JENNIFER (Rec: 12/07/21 12:14 JENNIFER [id number]) Nutrition Notes Initial or Follow up Assessment Current Diagnosis Hypertension,Stroke Other Pertinent Diagnosis Atriasl Fibrilation, s/p Mechanical Mytral Valve, Asthma, Hypothyroidism. Current Diet Cardiac Diet (since L 12/06). Labs/Tests 12/07: CO2 18, Glu 138. Pertinent Medications 12/07: Warfarin 7.5 mg PO, others nutritionally unremarkable. Height 5 ft 4 in Weight 53 kg [place] Body Weight (kg) 54.54 BMI 20.0 Intake Prior to Admission Good Weight change and time frame Pt denies having unintentionally loss body weight [employer]. Weight Status Appropriate Subjective/Other Information RD consult for Wafarine use assessment. Pt has been Warfarine user since she got her Mechanical Mytral Valbe placed, not date available. Pt not a candidate for Nutrition Education. No reports available on Pt's PO intake of meals at the time . Percent of energy/protein needs met: Prescribed Cardiac Diet provides for energy/protein needs (2,230 Kcal/85 g) during LOS. Burn Absent Trauma Absent GI Symptoms None Food Allergy No Skin Integrity/Comment Assessment WNL. Minimum of two criteria No #1 Nutrition Diagnosis No nutrition diagnosis at this time Is patient on ventilator? No Is Patient Ambulatory and/or Out of Bed Yes REE-([facility]-ambulatory/OOB) [ 1397.500 NUTR.MSJOOB] Calculation Used for Recommendations [facility] Additional Notes Protein: 0.8-1 g/Kg; 42-53 g/ day. Fluids: 1 ml/Kcal, or as per MD. Nutrition Intervention Follow-Up By: 12/14/21 Additional Comments Continue monitoring food tolerance, %PO intake of meals , and BM.
[2021-12-09 06:00] LABS: INR 1.83 (0.87-1.13)
[2021-12-09] MEDS: ACETAMINOPHEN 325 MG TAB PO PRN (08:15)
[2021-12-09] MEDS: METOPROLOL TARTRATE 25 MG TAB PO SCH ×2 (09:33→21:43)
[2021-12-09] MEDS: ASPIRIN 81 MG TAB CHEW PO SCH (09:33)
[2021-12-09] MEDS: FAMOTIDINE 20 MG/2 ML INJ IV SCH (09:33)
[2021-12-09] MEDS: IPRATROPIUM/ALBUTEROL SULFATE 3 ML AMPUL.NEB IH SCH ×3 (13:33→21:09)
[2021-12-09] MEDS: WARFARIN 5 MG TAB PO SCH (16:28)
[2021-12-09] MEDS: POLYETHYLENE GLYCOL 3350 17 GM POWDER PO PRN (16:34)
[2021-12-09] MEDS: HEPARIN/ 0.45% NACL DRIP 25,000 UNIT/500 ML BAG IV SCH (18:25)
--- NOTE | 2021-12-09 21:30 | Progress Note ---
Assessment and Plan Assessment and plan: 61-year-old female with past medical history of hypertension, asthma, hypothyroidism, currently taking Coumadin for mechanical mitral valve was brought to the emergency room because of headache strokelike symptom. Patient get up from the bed and feels weak. Initial CT scan of the head shows findings concerning for recent infarct in the right frontal lobe. No evidence of acute intracranial hemorrhage. No acute cervical spinal fracture . Subsequently ER doctor discussed the case with neurologist on-call who recommended aspirin 325 mg and admit the patient for further stroke work-up. So going to admit the patient I put the patient on stroke pathway. Aspirin 325 mg p.o. daily Lipitor 40 mg p.o. daily will consult neurology for evaluation also order MRI of the brain MR ray of the brain and neck and patient also has elevated troponin. Will consult cardiology and echocardiogram she reports that she typically follows at [place] for her medical care. (1) acute right CVA, multifocal infarcts likely from embolism/A. fib Current Visit: Yes Status: Acute Plan to address problem: MRI shows multi focal infarcts in the right hemisphere cortical as well as basal ganglia. MRI brain unremarkable. Left common carotid artery not visible. EKG shows atrial fibrillation, etiology appears to be embolism. Additionally, INR is not therapeutic in the presence of mechanical mitral valve. Echocardiogram shows normal LV wall thickness, LVEF 45%, diastolic function indeterminate, severely dilated left atrium, RV and RV normal size and function. Normal functioning mechanical mitral valve. No significant valvular dysfunction identified. Cardiology initiated IV heparin infusion with approval from neurology. Will need CTA neck versus MRI neck. Continue atorvastatin 40 mg daily and PT OT speech evaluation. Avoid hypotension Atrial fibrillation Remains rate controlled controlled On compliance monitor (2) HTN (hypertension) Current Visit: Yes Status: Acute Plan to address problem: Avoid hypotension in the setting of acute CVA (3) Asthma Current Visit: Yes Status: Acute Plan to address problem: Not in exacerbation. Albuterol via nebulizer every 4 hours as needed (4) mechanical mitral valve Current Visit: Yes Status: Acute Plan to address problem: Regarding patient, she did not have any recent INR checks. INR not therapeutic currently. Started on heparin infusion by cardiology for bridging. Normal functioning mitral valve on echocardiogram. (5) Tobacco abuse Current Visit: Yes Status: Acute Plan to address problem: Patient counseled regarding quitting smoking. Nicotine patch if needed (6) Elevated troponin Current Visit: Yes Status: Acute Plan to address problem: Aspirin 325 mg p.o. daily. Lipitor 40 mg p.o. daily. Due to the serial cardiac enzyme. Nitroglycerin as needed. Normal LV wall thickness on echo. LVEF of 35%. Patient does not complain of stress. Cardiology is evaluating. (7) fall at home Likely from left-sided weakness preceding the fall, no significant traumatic injuries identified on imaging. DVT prophylaxis Current Visit: Yes Status: Acute Plan to address problem: On heparin infusion Pepcid 20 mg IV every 12 hours for GI prophylaxis. Patient is a full code Discussed with the cardiology service History Interval history: Patient has no complaints. Patient gives history of some intermittent headaches but none now. Left-sided weakness almost resolved. Ambulating without diff iculty. Remains on IV heparin infusion for subtherapeutic INR with O2 without bleeding complications. Hospitalist Physical - Constitutional Vitals: Temp Pulse Resp BP Pulse Ox 98.0 F 78 16 120/79 100 12/09/21 16:00 12/09/21 21:11 12/09/21 21:11 12/09/21 16:00 12/09/21 16:00 General appearance: Present: no acute distress - EENT Eyes: Present: PERRL, EOM intact ENT: hearing intact - Neck Neck: Present: supple - Respiratory Respiratory effort: normal Respiratory: bilateral: CTA - Cardiovascular Rhythm: irregularly irregular - Abdominal General gastrointestinal: soft, non-tender, non-distended - Psychiatric Psychiatric: appropriate mood/affect - Neurologic Neurologic: other (Alert and oriented, speech normal, left facial weakness almost resolved. Strength in the left upper/lower extremities -5/5. Gait stable.) HEART Score - HEART Score Troponin: Troponin T 0.119 ng/mL (0.00-0.029) H* D 12/06/21 11:19 Results - Labs CBC & Chem 7: 12/10/21 05:17 12/07/21 05:08 Labs: Laboratory Last Values WBC 6.1 K/mm3 (4.5-11.0) 12/07/21 05:08 RBC 4.61 M/mm3 (3.65-5.03) 12/07/21 05:08 Hgb 12.4 gm/dl (10.1-14.3) 12/08/21 04:22 Hct 36.9 % (30.3-42.9) 12/08/21 04:22 MCV 87 fl (79-97) 12/07/21 05:08 MCH 28 pg (28-32) 12/07/21 05:08 MCHC 32 % (30-34) 12/07/21 05:08 RDW 14.8 % (13.2-15.2) 12/07/21 05:08 Plt Count 322 K/mm3 (140-440) 12/08/21 04:22 Lymph % (Auto) 25.3 % (13.4-35.0) 12/07/21 05:08 Wilkinson % (Auto) 9.6 % (0.0-7.3) H 12/07/21 05:08 Eos % (Auto) 1.5 % (0.0-4.3) 12/07/21 05:08 Baso % (Auto) 0.8 % (0.0-1.8) 12/07/21 05:08 Lymph # (Auto) 1.5 K/mm3 (1.2-5.4) 12/07/21 05:08 Wilkinson # (Auto) 0.6 K/mm3 (0.0-0.8) 12/07/21 05:08 Eos # (Auto) 0.1 K/mm3 (0.0-0.4) 12/07/21 05:08 Baso # (Auto) 0.0 K/mm3 (0.0-0.1) 12/07/21 05:08 Seg Neutrophils % 62.8 % (40.0-70.0) 12/07/21 05:08 Seg Neutrophils # 3.8 K/mm3 (1.8-7.7) 12/07/21 05:08 PT 23.5 Sec. (12.2-14.9) H 12/09/21 04:50 INR 1.83 (0.87-1.13) H 12/09/21 04:50 APTT 30.9 Sec. (24.2-36.6) 12/06/21 16:20 Heparin Anti-Xa Level 0.19 U.I./ml (0.3-0.7) L 12/09/21 12:31 Sodium 140 mmol/L (137-145) 12/07/21 05:08 Potassium 3.9 mmol/L (3.6-5.0) 12/07/21 05:08 Chloride 106.8 mmol/L (98-107) 12/07/21 05:08 Carbon Dioxide 18 mmol/L (22-30) L 12/07/21 05:08 Anion Gap 19 mmol/L 12/07/21 05:08 BUN 16 mg/dL (7-17) 12/07/21 05:08 Creatinine 1.0 mg/dL (0.6-1.2) 12/07/21 05:08 Estimated GFR > 60 ml/min 12/07/21 05:08 BUN/Creatinine Ratio 16 % 12/07/21 05:08 Glucose 138 mg/dL (65-100) H 12/07/21 05:08 POC Glucose 136 mg/dL (70-105) H 12/08/21 16:22 Calcium 9.5 mg/dL (8.4-10.2) 12/07/21 05:08 Troponin T 0.119 ng/mL (0.00-0.029) H* D 12/06/21 11:19 Triglycerides 113 mg/dL (2-149) 12/06/21 00:55 Cholesterol 230 mg/dL (50-199) H 12/06/21 00:55 LDL Cholesterol Direct 148 mg/dL (50-130) H 12/06/21 00:55 HDL Cholesterol 63 mg/dL (40-59) H 12/06/21 00:55 Cholesterol/HDL Ratio 3.65 % 12/06/21 00:55 Tripp/IV: Voiding Method Toilet Active Medications - Current Medications Current Medications: Generic Name Dose Route Start Last Admin Trade Name Freq PRN Reason Stop Dose Admin Acetaminophen 650 mg 12/06/21 02:32 12/09/21 08:15 Acetaminophen 325 Mg Tab PO 650 mg Q4H PRN Administration Pain MILD(1-3)/Fever >100.5/PRABHAKAR Albuterol 2.5 mg 12/06/21 02:32 Albuterol 2.5 Mg/3 Ml Nebu IH Q3HRT PRN Shortness Of Breath Albuterol/Ipratropium 1 ampul 12/07/21 08:00 12/09/21 21:09 Ipratropium/Albuterol Sulfate 3 Ml Ampul.Neb IH 1 ampul TIDRT GERSON Administration Aspirin 81 mg 12/08/21 10:00 12/09/21 09:33 Aspirin 81 Mg Tab Chew PO 81 mg QDAY GERSON Administration Atorvastatin Calcium 40 mg 12/06/21 22:00 12/08/21 21:57 Atorvastatin 40 Mg Tab PO 40 mg QHS GERSON Administration Famotidine 20 mg 12/09/21 22:00 Famotidine 20 Mg Tab PO BID GERSON Sodium Chloride 1,000 mls @ 100 mls/hr 12/06/21 02:45 Nacl 0.9% 1000 Ml IV DIRECT GERSON Heparin Sodium/Sodium Chloride 25,000 unit in 500 mls @ 15 mls/hr 12/06/21 16:00 12/09/21 18:25 Heparin/ 0.45% Nacl-25,000 Unit/500 Ml IV 700 units/hr TITR GERSON 14 mls/hr Administration Protocol 750 UNITS/HR Metoprolol Tartrate 25 mg 12/07/21 14:00 12/09/21 09:33 Metoprolol Tartrate 25 Mg Tab PO 25 mg BID GERSON Administration Ondansetron HCl 4 mg 12/06/21 02:32 Ondansetron 4 Mg/2 Ml Inj IV Q8H PRN Nausea And Vomiting Polyethylene Glycol 17 gm 12/09/21 13:16 12/09/21 16:34 Polyethylene Glycol 3350 17 Gm Powder PO 17 gm QDAY PRN Administration Constipation Sodium Chloride 10 ml 12/06/21 10:00 12/09/21 09:34 Sodium Chloride 0.9% 10 Ml Flush Syringe IV 10 ml BID GERSON Administration Sodium Chloride 10 ml 12/06/21 02:32 Sodium Chloride 0.9% 10 Ml Flush Syringe IV PRN PRN LINE FLUSH Warfarin Sodium 5 mg 12/09/21 17:00 12/09/21 16:28 Warfarin 5 Mg Tab PO 5 mg DAILY@1700 GERSON Administration Nutrition/Malnutrition Assess - Dietary Evaluation Nutrition/Malnutrition Findings: Nutrition Notes Start: 12/07/21 12:02 Freq: Status: Active Protocol: Document 12/07/21 12:02 JENNIFER (Rec: 12/07/21 12:14 JENNIFER [id number]) Nutrition Notes Initial or Follow up Assessment Current Diagnosis Hypertension,Stroke Other Pertinent Diagnosis Atriasl Fibrilation, s/p Mechanical Mytral Valve, Asthma, Hypothyroidism. Current Diet Cardiac Diet (since L 02/24). Labs/Tests 12/07: CO2 18, Glu 138. Pertinent Medications 12/07: Warfarin 7.5 mg PO, others nutritionally unremarkable. 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 Weight Status Appropriate Subjective/Other Information RD consult for Wafarine use assessment. Pt has been Warfarine user since she got her Mechanical Mytral Valbe placed, not date available. Pt not a candidate for Nutrition Education. No reports available on Pt's PO intake of meals at the time . Percent of energy/protein needs met: Prescribed Cardiac Diet provides for energy/protein needs (2,230 Kcal/85 g) during LOS. Burn Absent Trauma Absent GI Symptoms None Food Allergy No Skin Integrity/Comment Assessment WNL. Minimum of two criteria No #1 Nutrition Diagnosis No nutrition diagnosis at this time Is patient on ventilator? No Is Patient Ambulatory and/or Out of Bed Yes REE-([facility]-ambulatory/OOB) [ 1397.500 NUTR.MSJOOB] Calculation [facility] Additional Notes Protein: 0.8-1 g/Kg; 42-53 g/ day. Fluids: 1 ml/Kcal, or as per MD. Nutrition Intervention Follow-Up By: 12/14/21 Additional Comments Continue monitoring food tolerance, %PO intake of meals , and BM.
[2021-12-09] MEDS: FAMOTIDINE 20 MG TAB PO SCH (21:43)
[2021-12-10 05:31] LABS: Hematocrit 43.8 % (30.3-42.9); Hemoglobin 13.8 gm/dl (10.1-14.3)
[2021-12-10 05:46] LABS: INR 2.15 (0.87-1.13)
[2021-12-10] MEDS: ASPIRIN 81 MG TAB CHEW PO SCH (09:01)
[2021-12-10] MEDS: METOPROLOL TARTRATE 25 MG TAB PO SCH ×2 (09:01→21:53)
[2021-12-10] MEDS: FAMOTIDINE 20 MG TAB PO SCH ×2 (09:02→21:53)
[2021-12-10] MEDS: IPRATROPIUM/ALBUTEROL SULFATE 3 ML AMPUL.NEB IH SCH ×3 (09:23→22:06)
[2021-12-10] MEDS: ACETAMINOPHEN 325 MG TAB PO PRN ×2 (11:55→21:53)
[2021-12-10] MEDS: POLYETHYLENE GLYCOL 3350 17 GM POWDER PO PRN (11:55)
--- NOTE | 2021-12-10 15:07 | Progress Note ---
Assessment and Plan Patient is a 61-year-old female with a past medical history of hypertension, A. fib, CHF, mechanical mitral valve, hypothyroidism who came to the ED for a fall overnight Acute CVA-neurology following NSTEMI A. fib Hypertension S/p mechanical mitral valve replacement Subtherapeutic INR Asthma Hypothyroidism Cardiomyopathy HFrEF Echo 12/06/2021-EF 45 to 50%. Left ventricular diastolic function is indeterminate. Right ventricular systolic function is mildly reduced. Left atrium is severely dilated. Bubble study does not demonstrate PFO. Mechanical mitral valve appears normal no significant gradient noted across mitral valve difficult to evaluate for mitral regurgitation Plan: INR remains subtherapeutic continue heparin drip and bridge with Coumadin. Pharmacy to dose Coumadin Goal INR 2.5-3.5 Continue metoprolol 25 mg p.o. twice daily Patient seen in conjunction with who agrees with this plan of care - Patient Problems (1) Asthma Current Visit: Yes Status: Acute (2) CVA (cerebral vascular accident) Current Visit: Yes Status: Acute (3) Elevated troponin Current Visit: Yes Status: Acute (4) HTN (hypertension) Current Visit: Yes Status: Acute (5) Mitral valve disorder Current Visit: Yes Status: Acute (6) Right shoulder pain Current Visit: Yes Status: Acute (7) Tobacco abuse Current Visit: Yes Status: Acute Subjective Date of service: 12/10/21 Principal diagnosis: left side weakness Interval history: Patient resting in bed in no acute distress Patient remains in A. fib rate trending 80s to 90s Objective Vital Signs Temp Pulse Pulse Resp Resp BP Pulse Ox 12/10/21 14:01 66 18 12/10/21 12:05 71 135/81 100 12/10/21 12:00 76 20 97 12/10/21 09:23 68 18 12/10/21 09:01 78 12/10/21 04:20 97.7 F 70 16 123/78 100 12/10/21 02:24 77 12/09/21 23:14 20 97 12/09/21 22:47 97.2 F L 81 18 126/88 100 12/09/21 21:11 78 16 12/09/21 20:00 78 12/09/21 19:38 97.2 F L 62 18 115/84 100 12/09/21 16:00 98.0 F 73 18 120/79 100 - Physical Examination General: No Apparent Distress HEENT: Positive: PERRL Neck: Positive: trachea midline Cardiac: Positive: irregularly irregular Lungs: Positive: Normal Breath Sounds Neuro: Positive: Grossly Intact Abdomen: Positive: Soft, Active Bowel Sounds Skin: Negative: Rash, Suspicious Lesions, Ulceration Extremities: Present: upper extr. pulses. Absent: edema - Labs and Meds Coagulation 12/10/21 Range/Units 05:17 PT 26.8 H (12.2-14.9) Sec. INR 2.15 H (0.87-1.13) CBC 12/10/21 Range/Units 05:17 Hgb 13.8 (10.1-14.3) gm/dl Hct 43.8 H D (30.3-42.9) % Plt Count 288 (140-440) K/mm3 - Imaging and Cardiology Echo: report reviewed - Telemetry EKG Rhythm: Atrial Fibrillation - EKG Supraventricular dysrhythmia: atrial fibrillation Repolarization changes or abnormalities: Q-T interval prolongation
[2021-12-10] MEDS: WARFARIN 5 MG TAB PO SCH (17:12)
--- NOTE | 2021-12-10 20:40 | Progress Note ---
Assessment and Plan Assessment and plan: 61-year-old female with past medical history of hypertension, asthma, hypothyroidism, currently taking Coumadin for mechanical mitral valve was brought to the emergency room because of headache strokelike symptom. Patient get up from the bed and feels weak. Initial CT scan of the head shows findings concerning for recent infarct in the right frontal lobe. No evidence of acute intracranial hemorrhage. No acute cervical spinal fracture . Subsequently ER doctor discussed the case with neurologist on-call who recommended aspirin 325 mg and admit the patient for further stroke work-up. So going to admit the patient I put the patient on stroke pathway. Aspirin 325 mg p.o. daily Lipitor 40 mg p.o. daily will consult neurology for evaluation also order MRI of the brain MRA of the brain and neck . patient also has elevated troponin. Will consult cardiology and echocardiogram she reports that she typically follows at [place] for her medical care. (1) acute right CVA, multifocal infarcts likely from embolism/A. fib Current Visit: Yes Status: Acute Plan to address problem: MRI shows multi focal infarcts in the right hemisphere cortical as well as basal ganglia. MRA brain unremarkable. 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 EKG shows atrial fibrillation, etiology appears to be embolism. Additionally, INR is not therapeutic in the presence of mechanical mitral valve. Echocardiogram shows normal LV wall thickness, LVEF 45%, diastolic function indeterminate, severely dilated left atrium, RV and RV normal size and function. Normal functioning mechanical mitral valve. No significant valvular dysfunction identified. Cardiology initiated IV heparin infusion with approval from neurology for bridging until INR is therapeutic. Patient takes warfarin 5 mg daily except 2.5 mg on Mondays. Patient is currently receiving warfarin 5 mg daily. INR today came up to 2.15 and will be discharged when INR 2.5, possible tomorrow. Acute stroke symptoms consisting of a subtle left facial weakness with the left upper and lower extremity weakness nw for most resolved. Ambulating without difficulty. No swallowing issues. No speech problems. Continue atorvastatin 40 mg daily and PT OT speech evaluation. 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 Albuterol via nebulizer every 4 hours as needed (4) mechanical mitral valve Current Visit: Yes Status: Acute Plan to address problem: According to patient, she did not have any recent INR checks for 3 months. INR not therapeutic currently. Started on heparin infusion by cardiology for bridging. Normal functioning mitral valve on echocardiogram. (5) Tobacco abuse Current Visit: Yes Status: Acute Plan to address problem: Patient counseled regarding quitting smoking. Nicotine patch if needed (6) Elevated troponin Current Visit: Yes Status: Acute Plan to address problem: Aspirin 325 mg p.o. daily. Lipitor 40 mg p.o. daily. Due to the serial cardiac enzyme. Nitroglycerin as needed. Normal LV wall thickness on echo. LVEF of 35%. Patient does not complain of stress. Cardiology is evaluating. (7) fall at home Likely from left-sided weakness preceding the fall, no significant traumatic injuries identified on imaging. DVT prophylaxis Current Visit: Yes Status: Acute Plan to address problem: On heparin infusion Pepcid 20 mg IV every 12 hours for GI prophylaxis. Patient is a full code Disposition: Acute stroke symptoms almost resolved. Stable gait. On heparin bridge, INR today is 2.1. Patient will be discharged when INR 2.5, possible tomorrow Discussed with patient and CM. History Interval history: Patient has no complaints. Patient has some chronic intermittent headaches but none now. Left-sided weakness almost resolved. Ambulating without difficulty. Re juan on IV heparin infusion for subtherapeutic INR with O2 without bleeding complications. INR today came up to 2.15. Hospitalist Physical - Constitutional Vitals: Temp Pulse Resp BP Pulse Ox 97.7 F 109 H 16 126/89 100 12/10/21 19:27 12/10/21 20:00 12/10/21 19:27 12/10/21 19:27 12/10/21 19:27 General appearance: Present: no acute distress - EENT Eyes: Present: PERRL, EOM intact ENT: hearing intact, clear oral mucosa - Neck Neck: Present: supple - Respiratory Respiratory effort: normal Respiratory: bilateral: CTA - Cardiovascular Rhythm: irregularly irregular - Extremities Extremities: No edema - Abdominal General gastrointestinal: soft, non-tender, non-distended - Integumentary Integumentary: Absent: rash - Psychiatric Psychiatric: appropriate mood/affect - Neurologic Neurologic: other (Alert and oriented, normal speech, normal cognition/comprehension, mild left lower facial weakness mostly resolved. Weakness in left upper and lower extremities almost resolving.) HEART Score - HEART Score Troponin: Troponin T 0.119 ng/mL (0.00-0.029) H* D 12/06/21 11:19 Results - Labs CBC & Chem 7: 12/10/21 05:17 12/07/21 05:08 Labs: Laboratory Last Values WBC 6.1 K/mm3 (4.5-11.0) 12/07/21 05:08 RBC 4.61 M/mm3 (3.65-5.03) 12/07/21 05:08 Hgb 13.8 gm/dl (10.1-14.3) 12/10/21 05:17 Hct 43.8 % (30.3-42.9) H D 12/10/21 05:17 MCV 87 fl (79-97) 12/07/21 05:08 MCH 28 pg (28-32) 12/07/21 05:08 MCHC 32 % (30-34) 12/07/21 05:08 RDW 14.8 % (13.2-15.2) 12/07/21 05:08 Plt Count 288 K/mm3 (140-440) 12/10/21 05:17 Lymph % (Auto) 25.3 % (13.4-35.0) 12/07/21 05:08 Cottle % (Auto) 9.6 % (0.0-7.3) H 12/07/21 05:08 Eos % (Auto) 1.5 % (0.0-4.3) 12/07/21 05:08 Baso % (Auto) 0.8 % (0.0-1.8) 12/07/21 05:08 Lymph # (Auto) 1.5 K/mm3 (1.2-5.4) 12/07/21 05:08 Cottle # (Auto) 0.6 K/mm3 (0.0-0.8) 12/07/21 05:08 Eos # (Auto) 0.1 K/mm3 (0.0-0.4) 12/07/21 05:08 Baso # (Auto) 0.0 K/mm3 (0.0-0.1) 12/07/21 05:08 Seg Neutrophils % 62.8 % (40.0-70.0) 12/07/21 05:08 Seg Neutrophils # 3.8 K/mm3 (1.8-7.7) 12/07/21 05:08 PT 26.8 Sec. (12.2-14.9) H 12/10/21 05:17 INR 2.15 (0.87-1.13) H 12/10/21 05:17 APTT 30.9 Sec. (24.2-36.6) 12/06/21 16:20 Heparin Anti-Xa Level 0.10 U.I./ml (0.3-0.7) L 12/10/21 11:59 Sodium 140 mmol/L (137-145) 12/07/21 05:08 Potassium 3.9 mmol/L (3.6-5.0) 12/07/21 05:08 Chloride 106.8 mmol/L (98-107) 12/07/21 05:08 Carbon Dioxide 18 mmol/L (22-30) L 12/07/21 05:08 Anion Gap 19 mmol/L 12/07/21 05:08 BUN 16 mg/dL (7-17) 12/07/21 05:08 Creatinine 1.0 mg/dL (0.6-1.2) 12/07/21 05:08 Estimated GFR > 60 ml/min 12/07/21 05:08 BUN/Creatinine Ratio 16 % 12/07/21 05:08 Glucose 138 mg/dL (65-100) H 12/07/21 05:08 POC Glucose 136 mg/dL (70-105) H 12/08/21 16:22 Calcium 9.5 mg/dL (8.4-10.2) 12/07/21 05:08 Troponin T 0.119 ng/mL (0.00-0.029) H* D 12/06/21 11:19 Triglycerides 113 mg/dL (2-149) 12/06/21 00:55 Cholesterol 230 mg/dL (50-199) H 12/06/21 00:55 LDL Cholesterol Direct 148 mg/dL (50-130) H 12/06/21 00:55 HDL Cholesterol 63 mg/dL (40-59) H 12/06/21 00:55 Cholesterol/HDL Ratio 3.65 % 12/06/21 00:55 Tripp/IV: Voiding Method Toilet Active Medications - Current Medications Current Medications: Generic Name Dose Route Start Last Admin Trade Name Freq PRN Reason Stop Dose Admin Acetaminophen 650 mg 12/06/21 02:32 12/10/21 11:55 Acetaminophen 325 Mg Tab PO 650 mg Q4H PRN Administration Pain MILD(1-3)/Fever >100.5/PRABHAKAR Albuterol 2.5 mg 12/06/21 02:32 Albuterol 2.5 Mg/3 Ml Nebu IH Q3HRT PRN Shortness Of Breath Albuterol/Ipratropium 1 ampul 12/07/21 08:00 12/10/21 14:00 Ipratropium/Albuterol Sulfate 3 Ml Ampul.Neb IH 1 ampul TIDRT GERSON Administration Aspirin 81 mg 12/08/21 10:00 12/10/21 09:01 Aspirin 81 Mg Tab Chew PO 81 mg QDAY GERSON Administration Atorvastatin Calcium 40 mg 12/06/21 22:00 12/09/21 21:43 Atorvastatin 40 Mg Tab PO 40 mg QHS GERSON Administration Famotidine 20 mg 12/09/21 22:00 12/10/21 09:02 Famotidine 20 Mg Tab PO 20 mg BID GERSON Administration Sodium Chloride 1,000 mls @ 100 mls/hr 12/06/21 02:45 Nacl 0.9% 1000 Ml IV DIRECT GERSON Heparin Sodium/Sodium Chloride 25,000 unit in 500 mls @ 15 mls/hr 12/06/21 16:00 12/10/21 13:15 Heparin/ 0.45% Nacl-25,000 Unit/500 Ml IV 700 units/hr TITR GERSON 14 mls/hr Titration Protocol 750 UNITS/HR Metoprolol Tartrate 25 mg 12/07/21 14:00 12/10/21 09:01 Metoprolol Tartrate 25 Mg Tab PO 25 mg BID GERSON Administration Ondansetron HCl 4 mg 12/06/21 02:32 Ondansetron 4 Mg/2 Ml Inj IV Q8H PRN Nausea And Vomiting Polyethylene Glycol 17 gm 12/09/21 13:16 12/10/21 11:55 Polyethylene Glycol 3350 17 Gm Powder PO 17 gm QDAY PRN Administration Constipation Sodium Chloride 10 ml 12/06/21 10:00 12/10/21 09:02 Sodium Chloride 0.9% 10 Ml Flush Syringe IV 10 ml BID GERSON Administration Sodium Chloride 10 ml 12/06/21 02:32 Sodium Chloride 0.9% 10 Ml Flush Syringe IV PRN PRN LINE FLUSH Warfarin Sodium 5 mg 12/09/21 17:00 12/10/21 17:12 Warfarin 5 Mg Tab PO 5 mg DAILY@1700 GERSON Administration Nutrition/Malnutrition Assess - Dietary Evaluation Nutrition/Malnutrition Findings: Nutrition Notes Start: 12/07/21 12:02 Freq: Status: Active Protocol: Document 12/07/21 12:02 JENNIFER (Rec: 12/07/21 12:14 JENNIFER [id number]) Nutrition Notes Initial or Follow up Assessment Current Diagnosis Hypertension,Stroke Other Pertinent Diagnosis Atriasl Fibrilation, s/p Mechanical Mytral Valve, Asthma, Hypothyroidism. Current Diet Cardiac Diet (since L 12/06). Labs/Tests 12/07: CO2 18, Glu 138. Pertinent Medications 12/07: Warfarin 7.5 mg PO, others nutritionally unremarkable. 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 Pt has been Warfarine user since she got her Mechanical Mytral Valbe placed, not date available. Pt not a candidate for Nutrition Education. No reports available on Pt's PO intake of meals at the time . Percent of energy/protein needs met: Prescribed Cardiac Diet provides for energy/protein needs (2,230 Kcal/85 g) during LOS. Burn Absent Trauma Absent GI Symptoms None Food Allergy No Skin Integrity/Comment Assessment WNL. Minimum of two criteria No #1 Nutrition Diagnosis No nutrition diagnosis at this time Is patient on ventilator? No Is Patient Ambulatory and/or Out of Bed Yes REE-([place]-ambulatory/OOB) [ 1397.500 NUTR.MSJOOB] Calculation Used for Recommendations [place] Additional Notes Protein: 0.8-1 g/Kg; 42-53 g/ day. Fluids: 1 ml/Kcal, or as per MD. Nutrition Intervention Follow-Up By: 12/14/21 Additional Comments Continue monitoring food tolerance, %PO intake of meals , and BM.
[2021-12-11] MEDS ORDERED: traMADol 50 MG TAB PO ONE (00:58)
[2021-12-11 05:21] LABS: INR 2.05 (0.87-1.13)
[2021-12-11] MEDS: IPRATROPIUM/ALBUTEROL SULFATE 3 ML AMPUL.NEB IH SCH ×3 (08:59→21:43)
[2021-12-11] MEDS: FAMOTIDINE 20 MG TAB PO SCH ×2 (09:34→22:00)
[2021-12-11] MEDS: METOPROLOL TARTRATE 25 MG TAB PO SCH ×2 (09:34→22:00)
[2021-12-11] MEDS: ASPIRIN 81 MG TAB CHEW PO SCH (09:34)
--- NOTE | 2021-12-11 09:36 | Progress Note ---
Assessment and Plan Assessment and plan: 61-year-old female with past medical history of hypertension, asthma, hypothyroidism, currently taking Coumadin for mechanical mitral valve was brought to the emergency room because of headache strokelike symptoms. Initial CT scan of the head shows findings concerning for recent infarct in the right frontal lobe. No evidence of acute intracranial hemorrhage. No acute cervical spinal fracture . Subsequently ER doctor discussed the case with neurologist on-call who recommended aspirin 325 mg and admit the patient for further stroke work-up. The patient was placed on stroke pathway. Acute right CVA. MRI shows multi focal infarcts in the right hemisphere cortical as well as basal ganglia. MRA brain unremarkable. 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 Echocardiogram shows normal LV wall thickness, LVEF 45%, diastolic function indeterminate, severely dilated left atrium, RV and RV normal size and function. Normal functioning mechanical mitral valve. No significant valvular dysfunction identified. Atrial fibrillation NSTEMI Cardiomyopathy Compensated HFrEF Hypertension Asthma Mechanical mitral valve. Subtherapeutic INR Tobacco abuse 12/11/2021. Patient's INR remains subtherapeutic. We will continue heparin drip and bridged with Coumadin. INR today is 2.05 with a goal of 2.53.5. History Interval history: No new issues overnight. Hospitalist Physical - Constitutional Vitals: Temp Pulse Resp BP Pulse Ox 97.8 F 88 18 129/88 96 12/11/21 08:53 12/11/21 08:53 12/11/21 08:53 12/11/21 08:53 12/11/21 08:53 General appearance: Present: no acute distress - EENT Eyes: Present: PERRL, EOM intact ENT: hearing intact, clear oral mucosa, dentition normal - Neck Neck: Present: supple, normal ROM - Respiratory Respiratory effort: normal Respiratory: bilateral: CTA - Cardiovascular Rhythm: regular Heart Sounds: Present: S1 & S2. Absent: gallop, rub - Extremities Extremities: no ischemia, No edema, Full ROM - Abdominal General gastrointestinal: soft, non-tender, non-distended, normal bowel sounds - Integumentary Integumentary: Present: clear, warm, dry - Neurologic Neurologic: CNII-XII intact, moves all extremities HEART Score - HEART Score Troponin: Troponin T 0.119 ng/mL (0.00-0.029) H* D 12/06/21 11:19 Results - Labs CBC & Chem 7: 12/10/21 05:17 12/07/21 05:08 Labs: Laboratory Last Values WBC 6.1 K/mm3 (4.5-11.0) 12/07/21 05:08 RBC 4.61 M/mm3 (3.65-5.03) 12/07/21 05:08 Hgb 13.8 gm/dl (10.1-14.3) 12/10/21 05:17 Hct 43.8 % (30.3-42.9) H D 12/10/21 05:17 MCV 87 fl (79-97) 12/07/21 05:08 MCH 28 pg (28-32) 12/07/21 05:08 MCHC 32 % (30-34) 12/07/21 05:08 RDW 14.8 % (13.2-15.2) 12/07/21 05:08 Plt Count 288 K/mm3 (140-440) 12/10/21 05:17 Lymph % (Auto) 25.3 % (13.4-35.0) 12/07/21 05:08 [place] % (Auto) 9.6 % (0.0-7.3) H 12/07/21 05:08 Eos % (Auto) 1.5 % (0.0-4.3) 12/07/21 05:08 Baso % (Auto) 0.8 % (0.0-1.8) 12/07/21 05:08 Lymph # (Auto) 1.5 K/mm3 (1.2-5.4) 12/07/21 05:08 [place] # (Auto) 0.6 K/mm3 (0.0-0.8) 12/07/21 05:08 Eos # (Auto) 0.1 K/mm3 (0.0-0.4) 12/07/21 05:08 Baso # (Auto) 0.0 K/mm3 (0.0-0.1) 12/07/21 05:08 Seg Neutrophils % 62.8 % (40.0-70.0) 12/07/21 05:08 Seg Neutrophils # 3.8 K/mm3 (1.8-7.7) 12/07/21 05:08 PT 25.8 Sec. (12.2-14.9) H 12/11/21 04:51 INR 2.05 (0.87-1.13) H 12/11/21 04:51 APTT 30.9 Sec. (24.2-36.6) 12/06/21 16:20 Heparin Anti-Xa Level 0.23 U.I./ml (0.3-0.7) L 12/11/21 04:51 Sodium 140 mmol/L (137-145) 12/07/21 05:08 Potassium 3.9 mmol/L (3.6-5.0) 12/07/21 05:08 Chloride 106.8 mmol/L (98-107) 12/07/21 05:08 Carbon Dioxide 18 mmol/L (22-30) L 12/07/21 05:08 Anion Gap 19 mmol/L 12/07/21 05:08 BUN 16 mg/dL (7-17) 12/07/21 05:08 Creatinine 1.0 mg/dL (0.6-1.2) 12/07/21 05:08 Estimated GFR > 60 ml/min 12/07/21 05:08 BUN/Creatinine Ratio 16 % 12/07/21 05:08 Glucose 138 mg/dL (65-100) H 12/07/21 05:08 POC Glucose 96 mg/dL (70-105) 12/11/21 08:09 Calcium 9.5 mg/dL (8.4-10.2) 12/07/21 05:08 Troponin T 0.119 ng/mL (0.00-0.029) H* D 12/06/21 11:19 Triglycerides 113 mg/dL (2-149) 12/06/21 00:55 Cholesterol 230 mg/dL (50-199) H 12/06/21 00:55 LDL Cholesterol Direct 148 mg/dL (50-130) H 12/06/21 00:55 HDL Cholesterol 63 mg/dL (40-59) H 12/06/21 00:55 Cholesterol/HDL Ratio 3.65 % 12/06/21 00:55 Tripp/IV: Voiding Method Toilet Active Medications - Current Medications Current Medications: Generic Name Dose Route Start Last Admin Trade Name Freq PRN Reason Stop Dose Admin Acetaminophen 650 mg 12/06/21 02:32 12/10/21 21:53 Acetaminophen 325 Mg Tab PO 650 mg Q4H PRN Administration Pain MILD(1-3)/Fever >100.5/PRABHAKAR Albuterol 2.5 mg 12/06/21 02:32 Albuterol 2.5 Mg/3 Ml Nebu IH Q3HRT PRN Shortness Of Breath Albuterol/Ipratropium 1 ampul 12/07/21 08:00 12/11/21 08:59 Ipratropium/Albuterol Sulfate 3 Ml Ampul.Neb IH Not Given TIDRT GERSON Aspirin 81 mg 12/08/21 10:00 12/10/21 09:01 Aspirin 81 Mg Tab Chew PO 81 mg QDAY GERSON Administration Atorvastatin Calcium 40 mg 12/06/21 22:00 12/10/21 21:53 Atorvastatin 40 Mg Tab PO 40 mg QHS GERSON Administration Famotidine 20 mg 12/09/21 22:00 12/10/21 21:53 Famotidine 20 Mg Tab PO 20 mg BID GERSON Administration Sodium Chloride 1,000 mls @ 100 mls/hr 12/06/21 02:45 Nacl 0.9% 1000 Ml IV DIRECT GERSON Heparin Sodium/Sodium Chloride 25,000 unit in 500 mls @ 15 mls/hr 12/06/21 16:00 12/11/21 05:24 Heparin/ 0.45% Nacl-25,000 Unit/500 Ml IV 650 units/hr TITR GERSON 13 mls/hr Titration Protocol 750 UNITS/HR Metoprolol Tartrate 25 mg 12/07/21 14:00 12/10/21 21:53 Metoprolol Tartrate 25 Mg Tab PO 25 mg BID GERSON Administration Ondansetron HCl 4 mg 12/06/21 02:32 Ondansetron 4 Mg/2 Ml Inj IV Q8H PRN Nausea And Vomiting Polyethylene Glycol 17 gm 12/09/21 13:16 12/10/21 11:55 Polyethylene Glycol 3350 17 Gm Powder PO 17 gm QDAY PRN Administration Constipation Sodium Chloride 10 ml 12/06/21 10:00 12/10/21 21:54 Sodium Chloride 0.9% 10 Ml Flush Syringe IV 10 ml BID GERSON Administration Sodium Chloride 10 ml 12/06/21 02:32 Sodium Chloride 0.9% 10 Ml Flush Syringe IV PRN PRN LINE FLUSH Warfarin Sodium 7.5 mg 12/11/21 17:00 Warfarin 7.5 Mg Tab PO DAILY@1700 [facility] Nutrition/Malnutrition Assess - Dietary Evaluation Nutrition/Malnutrition Findings: Nutrition Notes Start: 12/07/21 12:02 Freq: Status: Active Protocol: Document 12/07/21 12:02 JENNIFER (Rec: 12/07/21 12:14 JENNIFER [id number]) Nutrition Notes Initial or Follow up Assessment Current Diagnosis Hypertension,Stroke Other Pertinent Diagnosis Atriasl Fibrilation, s/p Mechanical Mytral Valve, Asthma, Hypothyroidism. Current Diet Cardiac Diet (since L 12/06). Labs/Tests 12/07: CO2 18, Glu 138. Pertinent Medications 12/07: Warfarin 7.5 mg PO, others nutritionally unremarkable. Height 5 ft 4 in Weight 53 kg [place] Body Weight (kg) 54.54 BMI 20.0 Intake Prior to Admission Good Weight change and time frame Pt denies having unintentionally loss body weight [employer]. Weight Status Appropriate Subjective/Other Information RD consult for Wafarine use assessment. Pt has been Warfarine user since she got her Mechanical Mytral Valbe placed, not date available. Pt not a candidate for Nutrition Education. No reports available on Pt's PO intake of meals at the time . Percent of energy/protein needs met: Prescribed Cardiac Diet provides for energy/protein needs (2,230 Kcal/85 g) during LOS. Burn Absent Trauma Absent GI Symptoms None Food Allergy No Skin Integrity/Comment Assessment WNL. Minimum of two criteria No #1 Nutrition Diagnosis No nutrition diagnosis at this time Is patient on ventilator? No Is Patient Ambulatory and/or Out of Bed Yes REE-([facility]-ambulatory/OOB) [ 1397.500 NUTR.[email or web address]] Calculation Used for Recommendations [facility] Additional Notes Protein: 0.8-1 g/Kg; 42-53 g/ day. Fluids: 1 ml/Kcal, or as per MD. Nutrition Intervention Follow-Up By: 12/14/21 Additional Comments Continue monitoring food tolerance, %PO intake of meals , and BM.
--- NOTE | 2021-12-11 13:07 | Progress Note ---
Assessment and Plan Patient is a 61-year-old female with a past medical history of hypertension, A. fib, CHF, mechanical mitral valve, hypothyroidism who came to the ED for a fall overnight Acute CVA-neurology following NSTEMI A. fib Hypertension S/p mechanical mitral valve replacement Subtherapeutic INR Asthma Hypothyroidism Cardiomyopathy HFrEF Echo 12/06/2021-EF 45 to 50%. Left ventricular diastolic function is indeterminate. Right ventricular systolic function is mildly reduced. Left atrium is severely dilated. Bubble study does not demonstrate PFO. Mechanical mitral valve appears normal no significant gradient noted across mitral valve difficult to evaluate for mitral regurgitation Plan: INR remains subtherapeutic continue heparin drip and bridge with Coumadin. Pharmacy to dose Coumadin Goal INR 2.5-3.5 Continue metoprolol 25 mg p.o. twice daily Patient seen in conjunction with who agrees with this plan of care - Patient Problems (1) Asthma Current Visit: Yes Status: Acute (2) CVA (cerebral vascular accident) Current Visit: Yes Status: Acute (3) Elevated troponin Current Visit: Yes Status: Acute (4) HTN (hypertension) Current Visit: Yes Status: Acute (5) Mitral valve disorder Current Visit: Yes Status: Acute (6) Right shoulder pain Current Visit: Yes Status: Acute (7) Tobacco abuse Current Visit: Yes Status: Acute Subjective Date of service: 12/11/21 Principal diagnosis: left side weakness Interval history: Patient resting in bed in no acute distress Patient remains in A. fib rate trending 80s to 90s Objective Vital Signs Temp Pulse Pulse Resp Resp BP BP 12/11/21 12:00 60 20 12/11/21 10:29 88.7 F L 18 120/90 12/11/21 09:34 70 12/11/21 08:53 97.8 F 88 18 129/88 12/11/21 04:00 110 H 12/11/21 03:25 97.6 F 71 16 99/70 12/10/21 23:27 20 12/10/21 23:22 97.6 F 76 12 116/70 12/10/21 22:07 95 H 16 12/10/21 20:00 109 H 12/10/21 19:27 97.7 F 89 16 126/89 12/10/21 16:29 97.9 F 87 16 107/71 12/10/21 14:01 66 18 Pulse Ox 12/11/21 12:00 97 12/11/21 10:29 12/11/21 09:34 12/11/21 08:53 96 12/11/21 04:00 12/11/21 03:25 100 12/10/21 23:27 97 12/10/21 23:22 97 12/10/21 22:07 12/10/21 20:00 12/10/21 19:27 100 12/10/21 16:29 100 12/10/21 14:01 - Physical Examination General: No Apparent Distress HEENT: Positive: PERRL Neck: Positive: trachea midline Cardiac: Positive: irregularly irregular Lungs: Positive: Normal Breath Sounds Neuro: Positive: Grossly Intact Abdomen: Positive: Soft, Active Bowel Sounds Skin: Negative: Rash, Suspicious Lesions, Ulceration Extremities: Present: upper extr. pulses. Absent: edema - Labs and Meds Coagulation 12/11/21 Range/Units 04:51 PT 25.8 H (12.2-14.9) Sec. INR 2.05 H (0.87-1.13) - Imaging and Cardiology Echo: report reviewed - Telemetry EKG Rhythm: Atrial Fibrillation - EKG Supraventricular dysrhythmia: atrial fibrillation Ventricular dysrhythmias: ventricular premature com Repolarization changes or abnormalities: Q-T interval prolongation
[2021-12-11] MEDS: WARFARIN 7.5 MG TAB PO SCH (17:20)
[2021-12-11] MEDS: ACETAMINOPHEN 325 MG TAB PO PRN (22:04)
[2021-12-12 06:15] LABS: Hematocrit 39.8 % (30.3-42.9); Hemoglobin 13.2 gm/dl (10.1-14.3)
[2021-12-12 06:26] LABS: INR 2.32 (0.87-1.13)
[2021-12-12] MEDS: IPRATROPIUM/ALBUTEROL SULFATE 3 ML AMPUL.NEB IH SCH ×3 (08:44→20:27)
[2021-12-12] MEDS: METOPROLOL TARTRATE 25 MG TAB PO SCH ×2 (09:34→21:53)
[2021-12-12] MEDS: FAMOTIDINE 20 MG TAB PO SCH ×2 (09:34→21:53)
[2021-12-12] MEDS: ASPIRIN 81 MG TAB CHEW PO SCH (09:34)
--- NOTE | 2021-12-12 10:10 | Progress Note ---
Assessment and Plan Assessment and plan: 61-year-old female with past medical history of hypertension, asthma, hypothyroidism, currently taking Coumadin for mechanical mitral valve was brought to the emergency room because of headache strokelike symptoms. Initial CT scan of the head shows findings concerning for recent infarct in the right frontal lobe. No evidence of acute intracranial hemorrhage. No acute cervical spinal fracture . Subsequently ER doctor discussed the case with neurologist on-call who recommended aspirin 325 mg and admit the patient for further stroke work-up. The patient was placed on stroke pathway. Acute right CVA. MRI shows multi focal infarcts in the right hemisphere cortical as well as basal ganglia. MRA brain unremarkable. 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 Echocardiogram shows normal LV wall thickness, LVEF 45%, diastolic function indeterminate, severely dilated left atrium, RV and RV normal size and function. Normal functioning mechanical mitral valve. No significant valvular dysfunction identified. Atrial fibrillation NSTEMI Cardiomyopathy Compensated HFrEF Hypertension Asthma Mechanical mitral valve. Subtherapeutic INR Tobacco abuse 12/11/2021. Patient's INR remains subtherapeutic. We will continue heparin drip and bridged with Coumadin. INR today is 2.05 with a goal of 2.53.5. 12/12/2021. INR has improved to 2.3 but not at goal of 2.5. We will continue heparin drip and bridged with Coumadin. Continue metoprolol for rate control. History Interval history: No new issues overnight. Hospitalist Physical - Constitutional Vitals: Temp Pulse Resp BP Pulse Ox 97.7 F 66 18 107/65 100 12/12/21 08:24 12/12/21 08:24 12/12/21 08:24 12/12/21 09:34 12/12/21 08:24 General appearance: Present: no acute distress - EENT Eyes: Present: PERRL, EOM intact ENT: hearing intact, clear oral mucosa, dentition normal - Neck Neck: Present: supple, normal ROM - Respiratory Respiratory effort: normal Respiratory: bilateral: CTA - Cardiovascular Rhythm: regular Heart Sounds: Present: S1 & S2. Absent: gallop, rub - Extremities Extremities: no ischemia, No edema, Full ROM - Abdominal General gastrointestinal: soft, non-tender, non-distended, normal bowel sounds - Integumentary Integumentary: Present: clear, warm, dry - Neurologic Neurologic: CNII-XII intact, moves all extremities HEART Score - HEART Score Troponin: Troponin T 0.119 ng/mL (0.00-0.029) H* D 12/06/21 11:19 Results - Labs CBC & Chem 7: 12/12/21 06:02 12/07/21 05:08 Labs: Laboratory Last Values WBC 6.1 K/mm3 (4.5-11.0) 12/07/21 05:08 RBC 4.61 M/mm3 (3.65-5.03) 12/07/21 05:08 Hgb 13.2 gm/dl (10.1-14.3) 12/12/21 06:02 Hct 39.8 % (30.3-42.9) 12/12/21 06:02 MCV 87 fl (79-97) 12/07/21 05:08 MCH 28 pg (28-32) 12/07/21 05:08 MCHC 32 % (30-34) 12/07/21 05:08 RDW 14.8 % (13.2-15.2) 12/07/21 05:08 Plt Count 266 K/mm3 (140-440) 12/12/21 06:02 Lymph % (Auto) 25.3 % (13.4-35.0) 12/07/21 05:08 [place] % (Auto) 9.6 % (0.0-7.3) H 12/07/21 05:08 Eos % (Auto) 1.5 % (0.0-4.3) 12/07/21 05:08 Baso % (Auto) 0.8 % (0.0-1.8) 12/07/21 05:08 Lymph # (Auto) 1.5 K/mm3 (1.2-5.4) 12/07/21 05:08 [place] # (Auto) 0.6 K/mm3 (0.0-0.8) 12/07/21 05:08 Eos # (Auto) 0.1 K/mm3 (0.0-0.4) 12/07/21 05:08 Baso # (Auto) 0.0 K/mm3 (0.0-0.1) 12/07/21 05:08 Seg Neutrophils % 62.8 % (40.0-70.0) 12/07/21 05:08 Seg Neutrophils # 3.8 K/mm3 (1.8-7.7) 12/07/21 05:08 PT 28.5 Sec. (12.2-14.9) H 12/12/21 06:02 INR 2.32 (0.87-1.13) H 12/12/21 06:02 APTT 30.9 Sec. (24.2-36.6) 12/06/21 16:20 Heparin Anti-Xa Level 0.31 U.I./ml (0.3-0.7) 12/12/21 06:02 Sodium 140 mmol/L (137-145) 12/07/21 05:08 Potassium 3.9 mmol/L (3.6-5.0) 12/07/21 05:08 Chloride 106.8 mmol/L (98-107) 12/07/21 05:08 Carbon Dioxide 18 mmol/L (22-30) L 12/07/21 05:08 Anion Gap 19 mmol/L 12/07/21 05:08 BUN 16 mg/dL (7-17) 12/07/21 05:08 Creatinine 1.0 mg/dL (0.6-1.2) 12/07/21 05:08 Estimated GFR > 60 ml/min 12/07/21 05:08 BUN/Creatinine Ratio 16 % 12/07/21 05:08 Glucose 138 mg/dL (65-100) H 12/07/21 05:08 POC Glucose 96 mg/dL (70-105) 12/11/21 08:09 Calcium 9.5 mg/dL (8.4-10.2) 12/07/21 05:08 Troponin T 0.119 ng/mL (0.00-0.029) H* D 12/06/21 11:19 Triglycerides 113 mg/dL (2-149) 12/06/21 00:55 Cholesterol 230 mg/dL (50-199) H 12/06/21 00:55 LDL Cholesterol Direct 148 mg/dL (50-130) H 12/06/21 00:55 HDL Cholesterol 63 mg/dL (40-59) H 12/06/21 00:55 Cholesterol/HDL Ratio 3.65 % 12/06/21 00:55 Tripp/IV: Voiding Method Bedside Commode Active Medications - Current Medications Current Medications: Generic Name Dose Route Start Last Admin Trade Name Freq PRN Reason Stop Dose Admin Acetaminophen 650 mg 12/06/21 02:32 12/11/21 22:04 Acetaminophen 325 Mg Tab PO 650 mg Q4H PRN Administration Pain MILD(1-3)/Fever >100.5/PRABHAKAR Albuterol 2.5 mg 12/06/21 02:32 Albuterol 2.5 Mg/3 Ml Nebu IH Q3HRT PRN Shortness Of Breath Albuterol/Ipratropium 1 ampul 12/07/21 08:00 12/12/21 08:44 Ipratropium/Albuterol Sulfate 3 Ml Ampul.Neb IH Not Given TIDRT [facility] Aspirin 81 mg 12/08/21 10:00 12/12/21 09:34 Aspirin 81 Mg Tab Chew PO 81 mg QDAY GERSON Administration Atorvastatin Calcium 40 mg 12/06/21 22:00 12/11/21 22:00 Atorvastatin 40 Mg Tab PO 40 mg QHS GERSON Administration Famotidine 20 mg 12/09/21 22:00 12/12/21 09:34 Famotidine 20 Mg Tab PO 20 mg BID GERSON Administration Heparin Sodium/Sodium Chloride 25,000 unit in 500 mls @ 15 mls/hr 12/06/21 16:00 12/12/21 06:37 Heparin/ 0.45% Nacl-25,000 Unit/500 Ml IV Infused TITR [facility] Titration Protocol 750 UNITS/HR Metoprolol Tartrate 25 mg 12/07/21 14:00 12/12/21 09:34 Metoprolol Tartrate 25 Mg Tab PO 25 mg BID GERSON Administration Ondansetron HCl 4 mg 12/06/21 02:32 Ondansetron 4 Mg/2 Ml Inj IV Q8H PRN Nausea And Vomiting Polyethylene Glycol 17 gm 12/09/21 13:16 12/10/21 11:55 Polyethylene Glycol 3350 17 Gm Powder PO 17 gm QDAY PRN Administration Constipation Sodium Chloride 10 ml 12/06/21 10:00 12/12/21 09:34 Sodium Chloride 0.9% 10 Ml Flush Syringe IV 10 ml BID GERSON Administration Sodium Chloride 10 ml 12/06/21 02:32 Sodium Chloride 0.9% 10 Ml Flush Syringe IV PRN PRN LINE FLUSH Warfarin Sodium 7.5 mg 12/11/21 17:00 12/11/21 17:20 Warfarin 7.5 Mg Tab PO 7.5 mg DAILY@1700 GERSON Administration Nutrition/Malnutrition Assess - Dietary Evaluation Nutrition/Malnutrition Findings: Nutrition Notes Start: 12/07/21 12:02 Freq: Status: Active Protocol: Document 12/07/21 12:02 JENNIFER (Rec: 12/07/21 12:14 JENNIFER [id number]) Nutrition Notes Initial or Follow up Assessment Current Diagnosis Hypertension,Stroke Other Pertinent Diagnosis Atriasl Fibrilation, s/p Mechanical Mytral Valve, Asthma, Hypothyroidism. Current Diet Cardiac Diet (since L 12/06). Labs/Tests 12/07: CO2 18, Glu 138. Pertinent Medications 12/07: Warfarin 7.5 mg PO, others nutritionally unremarkable. Height 5 ft 4 in Weight 53 kg [place] Body Weight (kg) 54.54 BMI 20.0 Intake Prior to Admission Good Weight change and time frame Pt denies having unintentionally loss body weight [employer]. Weight Status Appropriate Subjective/Other Information RD consult for Wafarine use assessment. Pt has been Warfarine user since she got her Mechanical Mytral Valbe placed, not date available. Pt not a candidate for Nutrition Education. No reports available on Pt's PO intake of meals at the time . Percent of energy/protein needs met: Prescribed Cardiac Diet provides for energy/protein needs (2,230 Kcal/85 g) during LOS. Burn Absent Trauma Absent GI Symptoms None Food Allergy No Skin Integrity/Comment Assessment WNL. Minimum of two criteria No #1 Nutrition Diagnosis No nutrition diagnosis at this time Is patient on ventilator? No Is Patient Ambulatory and/or Out of Bed Yes REE-([place]-ambulatory/OOB) [ 1397.500 NUTR.MSJOOB] Calculation Used for Recommendations [place] Additional Notes Protein: 0.8-1 g/Kg; 42-53 g/ day. Fluids: 1 ml/Kcal, or as per MD. Nutrition Intervention Follow-Up By: 12/14/21 Additional Comments Continue monitoring food tolerance, %PO intake of meals , and BM.
[2021-12-12] MEDS: ACETAMINOPHEN 325 MG TAB PO PRN (13:04)
[2021-12-12] MEDS: POLYETHYLENE GLYCOL 3350 17 GM POWDER PO PRN (13:04)
--- NOTE | 2021-12-12 14:54 | Progress Note ---
Assessment and Plan Patient is a 61-year-old female with a past medical history of hypertension, A. fib, CHF, mechanical mitral valve, hypothyroidism who came to the ED for a fall overnight Acute CVA-neurology following NSTEMI A. fib Hypertension S/p mechanical mitral valve replacement Subtherapeutic INR Asthma Hypothyroidism Cardiomyopathy HFrEF Echo 12/06/2021-EF 45 to 50%. Left ventricular diastolic function is indeterminate. Right ventricular systolic function is mildly reduced. Left atrium is severely dilated. Bubble study does not demonstrate PFO. Mechanical mitral valve appears normal no significant gradient noted across mitral valve difficult to evaluate for mitral regurgitation Plan: INR remains subtherapeutic continue heparin drip and bridge with Coumadin. Pharmacy to dose Coumadin Goal INR 2.5-3.5 Continue metoprolol 25 mg p.o. twice daily Patient seen in conjunction with who agrees with this plan of care - Patient Problems (1) Asthma Current Visit: Yes Status: Acute (2) CVA (cerebral vascular accident) Current Visit: Yes Status: Acute (3) Elevated troponin Current Visit: Yes Status: Acute (4) HTN (hypertension) Current Visit: Yes Status: Acute (5) Mitral valve disorder Current Visit: Yes Status: Acute (6) Right shoulder pain Current Visit: Yes Status: Acute (7) Tobacco abuse Current Visit: Yes Status: Acute Subjective Date of service: 12/12/21 Principal diagnosis: left side weakness Interval history: Patient resting in bed in no acute distress Patient remains in A. fib rate trending 80s to 90s Objective Vital Signs Temp Pulse Pulse Resp BP BP Pulse Ox 12/12/21 12:07 97.1 F L 67 18 130/78 96 12/12/21 12:00 73 12/12/21 11:13 72 18 98 12/12/21 09:34 107/65 12/12/21 08:24 97.7 F 66 18 107/65 100 12/12/21 04:06 98.1 F 62 18 114/72 96 12/12/21 00:00 98 12/11/21 23:32 96.6 F L 58 L 18 113/69 97 12/11/21 22:00 87 12/11/21 20:00 98.4 F 87 18 125/75 100 12/11/21 16:00 97 F L 70 17 126/80 99 12/11/21 15:29 96.7 F L 18 126/80 12/11/21 15:25 70 126/80 99 - Physical Examination General: No Apparent Distress HEENT: Positive: PERRL Neck: Positive: trachea midline Cardiac: Positive: irregularly irregular Lungs: Positive: Normal Breath Sounds Neuro: Positive: Grossly Intact Abdomen: Positive: Soft, Active Bowel Sounds Skin: Negative: Rash, Suspicious Lesions, Ulceration Extremities: Present: upper extr. pulses. Absent: edema - Labs and Meds Coagulation 12/12/21 Range/Units 06:02 PT 28.5 H (12.2-14.9) Sec. INR 2.32 H (0.87-1.13) CBC 12/12/21 Range/Units 06:02 Hgb 13.2 (10.1-14.3) gm/dl Hct 39.8 (30.3-42.9) % Plt Count 266 (140-440) K/mm3 - Imaging and Cardiology Echo: report reviewed - Telemetry EKG Rhythm: Atrial Fibrillation - EKG Supraventricular dysrhythmia: atrial fibrillation Ventricular dysrhythmias: ventricular premature com Repolarization changes or abnormalities: Q-T interval prolongation
[2021-12-12] MEDS: WARFARIN 7.5 MG TAB PO SCH (16:38)
[2021-12-12] MEDS: HEPARIN/ 0.45% NACL DRIP 25,000 UNIT/500 ML BAG IV SCH (18:20)
[2021-12-13] MEDS: ACETAMINOPHEN 325 MG TAB PO PRN (00:07)
[2021-12-13] MEDS: IPRATROPIUM/ALBUTEROL SULFATE 3 ML AMPUL.NEB IH SCH (08:30)
[2021-12-13 09:40] LABS: INR 2.87 (0.87-1.13)
[2021-12-13] MEDS: METOPROLOL TARTRATE 25 MG TAB PO SCH (10:23)
[2021-12-13] MEDS: ASPIRIN 81 MG TAB CHEW PO SCH (10:23)
[2021-12-13] MEDS: FAMOTIDINE 20 MG TAB PO SCH (10:23)
--- NOTE | 2021-12-13 10:32 | Discharge Summary ---
Providers - Providers Date of Admission: 12/06/21 02:32 Date of discharge: 12/13/21 Attending physician: MANPREET BHAKTA 12/06/21 02:32 Consult to Physician [CONS] Routine Comment: Consulting Provider: DAYSI BAKER Physician Instructions: Reason For Exam: cva Occupational Therapy Evaluate and Treat [CONS] Routine Comment: Reason For Exam: Neuro deficits Physical Therapy Evaluation and Treat [CONS] Routine Comment: Reason For Exam: Neuro deficits 12/06/21 05:43 Consult to Physician [CONS] Routine Comment: Consulting Provider: BECCA HARPER Physician Instructions: Reason For Exam: Elevated troponin Primary care physician: ORACLE ADF DEVELOPER Hospitalization Reason for admission: CVA Condition: Stable Hospital course: 61-year-old female with past medical history of hypertension, asthma, hypothyroidism, currently taking Coumadin for mechanical mitral valve was brought to the emergency room because of headache strokelike symptoms. Initial CT scan of the head revealed findings concerning for recent infarct in the right frontal lobe. No evidence of acute intracranial hemorrhage. No acute cervical spinal fracture. Subsequently ER doctor discussed the case with neurologist on- call who recommended aspirin 325 mg and admit the patient for further stroke work-up. The patient was placed on stroke pathway. The patient was admitted with diagnosis of Acute right CVA, atrial fibrillation, NSTEMI, cardiomyopathy, compensated heart failure with reduced ejection fraction, hypertension, asthma and mechanical mitral valve. MRI showed multi focal infarcts in the right hemisphere cortical as well as basal ganglia. MRA brain unremarkable. 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 Echocardiogram showed normal LV wall thickness, LVEF 45%, diastolic function indeterminate, severely dilated left atrium, RV and RV normal size and function. Normal functioning mechanical mitral valve. No significant valvular dysfunction identified. Neurology saw the patient in consultation and recommended aspirin and Lipitor. The patient was treated with IV heparin for bridging in order to maintain Coumadin level that was therapeutic. Patient was noted to be subtherapeutic with INR less than 2.5. Cardiology also saw the patient for the atrial fibrillation and recommended metoprolol 25 mg p.o. twice daily. Rate was controlled. Patient eventually reached goal INR 2.53.5 with INR 2.8 today. Patient is felt to have received maximal hospital benefit and will be discharged home. Dedicated discharge time 35 minutes Disposition: 01 HOME / SELF CARE / HOMELESS Final Discharge Diagnosis (Prints w/discharge instructions): Acute right CVA, atrial fibrillation, NSTEMI, cardiomyopathy, compensated heart failure with reduced ejection fraction, hypertension, asthma and mechanical mitral valve. Core Measure Documentation - Palliative Care Palliative Care/ Comfort Measures: Not Applicable - Core Measures Any of the following diagnoses?: stroke - Stroke Discharge Requirements Statin for LDL = or >70 mg/dl on DC: Yes Anticoag for atrial fib/atrial flutter: Yes Antithrombotic for ischemic stroke: Yes Exam - Constitutional Vitals: Temp Pulse Resp BP Pulse Ox 98.3 F 54 L 20 131/89 99 12/13/21 07:09 12/13/21 07:09 12/13/21 07:09 12/13/21 07:09 12/13/21 07:09 General appearance: Present: no acute distress, well-nourished - EENT Eyes: Present: PERRL ENT: hearing intact, clear oral mucosa - Neck Neck: Present: supple, normal ROM - Respiratory Respiratory effort: normal Respiratory: bilateral: CTA - Cardiovascular Heart Sounds: Present: S1 & S2. Absent: rub, click - Extremities Extremities: pulses symmetrical, No edema Peripheral Pulses: within normal limits - Abdominal General gastrointestinal: Present: soft, non-tender, non-distended, normal bowel sounds Female genitourinary: Present: normal - Integumentary Integumentary: Present: clear, warm, dry - Musculoskeletal Musculoskeletal: gait normal, strength equal bilaterally - Psychiatric Psychiatric: appropriate mood/affect, intact judgment & insight - Neurologic Neurologic: CNII-XII intact, moves all extremities Plan Activity: advance as tolerated Weight Bearing Status: Weight Bear as Tolerated Diet: regular Follow up with: PRIMARY MD SAMARIA [Primary Care Provider] - 3-5 Days DAYSI BAKER MD [Staff Physician] - 7 Days OSKAR AWTTS MD [Staff Physician] - 7 Days Prescriptions: Aspirin [Aspirin BABY CHEW TAB] 81 mg PO QDAY #30 tab.chew Warfarin [Coumadin] 7.5 mg PO DAILY@1700 #30 tablet AtorvaSTATin [Lipitor] 40 mg PO QHS #30 tablet Metoprolol [Lopressor TAB] 25 mg PO BID #60 tablet Famotidine [Pepcid] 20 mg PO BID #60 tablet
[2021-12-13 12:03] VITALS: BP 121/91
--- NOTE | 2021-12-13 15:22 | Progress Note ---
Assessment and Plan Patient is a 61-year-old female with a past medical history of hypertension, A. fib, CHF, mechanical mitral valve, hypothyroidism who came to the ED for a fall overnight Acute CVA-neurology following NSTEMI A. fib Hypertension S/p mechanical mitral valve replacement Subtherapeutic INR Asthma Hypothyroidism Cardiomyopathy HFrEF Echo 12/06/2021-EF 45 to 50%. Left ventricular diastolic function is indeterminate. Right ventricular systolic function is mildly reduced. Left atrium is severely dilated. Bubble study does not demonstrate PFO. Mechanical mitral valve appears normal no significant gradient noted across mitral valve difficult to evaluate for mitral regurgitation Plan: Patient is INR is therapeutic this a.m. Continue metoprolol 25 mg p.o. twice daily Discussed with patient importance of medication compliance and having INR checks Patient verbalized understanding and acknowledgment Cardiac status otherwise stable will sign off. Patient should follow-up with their [place] nat instructor in 1 to 2 weeks Patient seen in conjunction with who agrees with this plan of care - Patient Problems (1) Asthma Current Visit: Yes Status: Acute (2) CVA (cerebral vascular accident) Current Visit: Yes Status: Acute (3) Elevated troponin Current Visit: Yes Status: Acute (4) HTN (hypertension) Current Visit: Yes Status: Acute (5) Mitral valve disorder Current Visit: Yes Status: Acute (6) Right shoulder pain Current Visit: Yes Status: Acute (7) Tobacco abuse Current Visit: Yes Status: Acute Subjective Date of service: 12/13/21 Principal diagnosis: left side weakness Interval history: Patient resting in bed in no acute distress Patient remains in A. fib rate trending 80s to 90s Objective Vital Signs Temp Pulse Pulse Resp BP BP Pulse Ox 12/13/21 10:45 98.8 F 70 20 121/91 100 12/13/21 10:00 74 99 12/13/21 07:09 98.3 F 54 L 20 131/89 99 12/13/21 04:07 98.9 F 17 99/66 12/13/21 04:00 70 97 12/13/21 00:04 97.3 F L 59 L 19 115/76 99 12/12/21 23:00 86 16 99 12/12/21 21:53 88 12/12/21 19:40 97.8 F 90 18 112/86 98 12/12/21 19:00 98.3 F 118 H 19 184/104 95 12/12/21 16:00 97.5 F L 68 18 128/72 97 - Physical Examination General: No Apparent Distress HEENT: Positive: PERRL Neck: Positive: trachea midline Cardiac: Positive: irregularly irregular Lungs: Positive: Normal Breath Sounds Neuro: Positive: Grossly Intact Abdomen: Positive: Soft, Active Bowel Sounds Skin: Negative: Rash, Suspicious Lesions, Ulceration Extremities: Present: upper extr. pulses. Absent: edema - Labs and Meds Coagulation 12/13/21 Range/Units 07:56 PT 33.9 H (12.2-14.9) Sec. INR 2.87 H (0.87-1.13) - Imaging and Cardiology Echo: report reviewed - Telemetry EKG Rhythm: Atrial Fibrillation - EKG Supraventricular dysrhythmia: atrial fibrillation Ventricular dysrhythmias: ventricular premature com Repolarization changes or abnormalities: Q-T interval prolongation
== END 2021-12-13 15:30 | disposition home or self-care (01) | DRG 64 ==
LOC: ED 20:58 → 4A 12-06 02:32
PROVIDERS: ADMIT Hospitalist; ATTEND Hospitalist
DX: I63.9 Cerebral infarction, unspecified (principal); I21.A1 Myocardial infarction type 2; I50.20 Unspecified systolic (congestive) heart failure; I42.9 Cardiomyopathy, unspecified; J45.909 Unspecified asthma, uncomplicated; I05.9 Rheumatic mitral valve disease, unspecified; I11.0 Hypertensive heart disease with heart failure; I48.91 Unspecified atrial fibrillation; Z82.3 Family history of stroke; Z82.49 Family history of ischemic heart disease and other diseases of the circulatory system; E03.9 Hypothyroidism, unspecified
CPT/HCPCS: 36415; 70450; 70544; 70551; 72125; 80048; 80061; 82962; 84484; 85014; 85018; 85025; 85049; 85520; 85610; 85730; 93005; 93010; 93306; 93880; 94640; 99406; G0378; J3490; C8929; J1644

== ENCOUNTER 2022-03-11 18:26 | Emergency (ER) | payer SELFPAY ==
[2022-03-11] MEDS ORDERED: ACETAMINOPHEN 325 MG TAB PO ONE (18:43)
--- NOTE | 2022-03-11 19:04 | XRay Report ---
XR chest routine 2V INDICATION / CLINICAL INFORMATION: SOB. COMPARISON: None available. FINDINGS: SUPPORT DEVICES: None. HEART /PULMONARY VASCULATURE: Heart is enlarged with cardiac valve prosthesis. No significant pulmona ry vasculature congestion. LUNGS / PLEURA: No significant pulmonary or pleural abnormality. No pneumothorax. ADDITIONAL FINDINGS: No significant additional findings. IMPRESSION: Cardiomegaly without overt failure or other acute chest process. Signer Name: Tino Cheatham MD Signed: 03/11/2022 7:00 PM Workstation Name: [id number]
[2022-03-12] MEDS ORDERED: ACETAMINOPHEN 325 MG TAB PO ONE (03:10)
[2022-03-12] MEDS ORDERED: SODIUM CHLORIDE 0.9% 1000 ML 1,000 ML ONE (04:41)
[2022-03-12 05:15] LABS: Bacteria,Urine 4+ /HPF (Negative); Bilirubin,Urine NEG (Negative); Blood,Urine LG (Negative); Color,Urine Yellow (Yellow); Mucus,Urine 1+ /HPF
--- NOTE | 2022-03-12 05:27 | XRay Report ---
CHEST 1 VIEW INDICATION / CLINICAL INFORMATION: Dyspnea. COMPARISON: Chest x-ray 03/11/2022 FINDINGS: SUPPORT DEVICES: None. HEART / MEDIASTINUM: Stable interval appearance of cardiomediastinal silhouette and poststernotomy ch anges. LUNGS / PLEURA: No focal consolidation. Mild diffuse interstitial prominence likely chronic is stable . BONES: No significant osseous abnormality. ADDITIONAL FINDINGS: No significant additional findings. IMPRESSION: 1. No active cardiopulmonary disease. Signer Name: Steve Carroll II, MD Signed: 03/12/2022 5:23 AM Workstation Name: [id number]
[2022-03-12 05:35] LABS: Hematocrit 34.8 % (30.3-42.9); Hemoglobin 11.5 gm/dl (10.1-14.3); Mean Corpuscular HGB Conc 33 % (30-34); Mean Corpuscular Volume 84 fl (79-97); Platelet Count 197 K/mm3 (140-440); Red Blood Count 4.13 M/mm3 (3.65-5.03); Red Cell Distribution Width 14.4 % (13.2-15.2)
[2022-03-12 05:43] LABS: INR 3.28 (0.87-1.13)
[2022-03-12 05:48] LABS: BUN/Creatinine Ratio 16; Blood Urea Nitrogen 14 mg/dL (7-17); Calcium 9.1 mg/dL (8.4-10.2); Hemolysis Index 6
[2022-03-12 05:50] LABS: Partial Thromboplastin Time 70.4 Sec. (24.2-36.6)
--- NOTE | 2022-03-12 06:30 | Emergency Department Report ---
ED Shortness of Breath HPI - General Chief Complaint: Dyspnea/Respdistress Stated Complaint: CP Time Seen by Provider: 03/12/22 06:10 Source: patient Mode of arrival: Ambulatory Limitations: No Limitations - History of Present Illness MD Complaint: shortness of breath, cough -: Gradual, days(s) (7 days; pt denies chest pain) Known History Of: COPD Context: recent URI Associated Symptoms: fever, cough, sputum production, nausea/vomiting (nausea, no vomiting ), other (generalized fatigue) - Related Data Home Oxygen Therapy: No (pt is not on home oxygen) Home Medications Medication Instructions Recorded Confirmed Last Taken Mupirocin [Bactroban 2% CREAM] 1 applicatio TP TID 12/12/21 12/12/21 12/04/21 Nystatin Cream [Mycostatin Cream] 1 applic TP BID 12/12/21 12/12/21 12/04/21 Salicylic Acid [Duofilm] 9.8 ml TP DAILY 12/12/21 12/12/21 12/04/21 Sennosides [Senna] 8.6 mg PO HS 12/12/21 12/12/21 12/04/21 Previous Rx's Medication Instructions Recorded Last Taken Type Acetaminophen [Acetaminophen TAB] 650 mg PO Q4H PRN tablet 12/13/21 Unknown Rx Aspirin [Aspirin BABY CHEW TAB] 81 mg PO QDAY #30 tab.chew 12/13/21 Unknown Rx AtorvaSTATin [Lipitor] 40 mg PO QHS #30 tablet 12/13/21 Unknown Rx Famotidine [Pepcid] 20 mg PO BID #60 tablet 12/13/21 Unknown Rx Metoprolol [Lopressor TAB] 25 mg PO BID #60 tablet 12/13/21 Unknown Rx Warfarin [Coumadin] 7.5 mg PO DAILY@1700 #30 tablet 12/13/21 Unknown Rx Azithromycin [Zithromax Z-BALDOMERO] 250 mg PO DAILY #6 tab 03/12/22 Unknown Rx Furosemide [Lasix TAB] 20 mg PO QDAY 14 Days #14 tablet 03/12/22 Unknown Rx Allergies Allergy/AdvReac Type Severity Reaction Status Date / Time No Known Allergies Allergy Verified 09/26/18 06:52 ED Review of Systems ROS: Stated complaint: CP Other details as noted in HPI Constitutional: see HPI, chills, malaise, weakness. denies: diaphoresis, fever Eyes: denies: eye pain, eye discharge, vision change ENT: congestion. denies: ear pain, throat pain, hearing loss, epistaxis Respiratory: cough, shortness of breath. denies: orthopnea, SOB with exertion, SOB at rest, stridor, wheezing Cardiovascular: denies: chest pain, palpitations, dyspnea on exertion, orth opnea, edema, syncope, paroxysmal nocturnal dyspnea, other Endocrine: no symptoms reported Gastrointestinal: nausea. denies: abdominal pain, vomiting, diarrhea, constipation, hematemesis, melena, hematochezia Genitourinary: denies: urgency, dysuria, frequency, hematuria, discharge, abnormal menses, dyspareunia Musculoskeletal: myalgia. denies: joint swelling, arthralgia Skin: denies: rash, lesions, change in color, change in hair/nails, pruritus Neurological: weakness, paresthesias, confusion. denies: headache, numbness, abnormal gait, vertigo, other Psychiatric: denies: anxiety, depression, auditory hallucinations, visual hallucinations, homicidal thoughts, suicidal thoughts Hematological/Lymphatic: denies: easy bleeding, easy bruising, swollen glands ED Past Medical Hx - Past Medical History Hx Hypertension: Yes Hx Congestive Heart Failure: No Hx Diabetes: No Hx Asthma: Yes Hx COPD: Yes (pt states "I think they told me I have copd") Additional medical history: hyperthyroid, MECHANICAL HEART VALVE - Surgical History Hx Open Heart Surgery: Yes - Social History Smoking Status: Former Smoker - Medications Home Medications: Home Medications Medication Instructions Recorded Confirmed Last Taken Type Mupirocin [Bactroban 2% CREAM] 1 applicatio TP TID 12/12/21 12/12/21 12/04/21 History Nystatin Cream [Mycostatin Cream] 1 applic TP BID 12/12/21 12/12/21 12/04/21 History Salicylic Acid [Duofilm] 9.8 ml TP DAILY 12/12/21 12/12/21 12/04/21 History Sennosides [Senna] 8.6 mg PO HS 12/12/21 12/12/21 12/04/21 History Acetaminophen [Acetaminophen TAB] 650 mg PO Q4H PRN tablet 12/13/21 Unknown Rx Aspirin [Aspirin BABY CHEW TAB] 81 mg PO QDAY #30 tab.chew 12/13/21 Unknown Rx AtorvaSTATin [Lipitor] 40 mg PO QHS #30 tablet 12/13/21 Unknown Rx Famotidine [Pepcid] 20 mg PO BID #60 tablet 12/13/21 Unknown Rx Metoprolol [Lopressor TAB] 25 mg PO BID #60 tablet 12/13/21 Unknown Rx Warfarin [Coumadin] 7.5 mg PO DAILY@1700 #30 tablet 12/13/21 Unknown Rx Azithromycin [Zithromax Z-BALDOMERO] 250 mg PO DAILY #6 tab 03/12/22 Unknown Rx Furosemide [Lasix TAB] 20 mg PO QDAY 14 Days #14 tablet 03/12/22 Unknown Rx ED Physical Exam - General Limitations: No Limitations General appearance: alert, in no apparent distress, other (Patient is comfortable appearing, speaking in full sentences, no drooling or stridor no respiratory distress, nontoxic-appearing) - Eye Eye exam: Present: normal appearance, PERRL, EOMI Pupils: Present: normal accommodation - ENT ENT exam: Present: normal exam, normal orophraynx, TM's normal bilaterally - Neck Neck exam: Present: normal inspection, full ROM. Absent: tenderness, me ningismus, lymphadenopathy, thyromegaly - Respiratory Respiratory exam: Present: normal lung sounds bilaterally. Absent: respiratory distress, wheezes, rales, rhonchi, stridor, chest wall tenderness, accessory muscle use, decreased breath sounds, prolonged expiratory - Cardiovascular Cardiovascular Exam: Present: regular rate, normal rhythm, normal heart sounds. Absent: bradycardia, tachycardia, irregular rhythm, systolic murmur, diastolic murmur, rubs, gallop, clicks, JVD, S3, S4 - GI/Abdominal GI/Abdominal exam: Present: soft, normal bowel sounds. Absent: distended, tende rness, guarding, rebound, rigid, diminished bowel sounds, hyperactive bowel sounds, hypoactive bowel sounds, organomegaly, mass, bruit, pulsatile mass, hernia - Rectal Rectal exam: Present: deferred - Extremities Exam Extremities exam: Present: normal inspection, full ROM, normal capillary refill. Absent: tenderness, pedal edema, joint swelling, calf tenderness - Back Exam Back exam: Present: normal inspection, full ROM. Absent: tenderness, CVA tenderness (R), CVA tenderness (L), muscle spasm, paraspinal tenderness, vertebral tenderness - Neurological Exam Neurological exam: Present: alert, oriented X3, CN II-XII intact, normal gait, motor sensory deficit, reflexes normal - Psychiatric Psychiatric exam: Present: normal affect, normal mood - Skin Skin exam: Present: warm, dry, intact, normal color. Absent: rash, cyanosis, diaphoretic, erythema, urticaria, vesicles, petechiae, pallor, abrasion, ecchymosis, other ED Course Vital Signs 03/11/22 03/12/22 03/12/22 18:27 03:45 04:01 Temperature 100.8 F H Pulse Rate 96 H 89 Respiratory 20 28 H Rate Blood Pressure 156/89 133/86 Blood Pressure [Left] O2 Sat by Pulse 99 98 98 Oximetry 03/12/22 03/12/22 03/12/22 04:15 04:31 04:42 Temperature Pulse Rate 92 H 95 H Respiratory 27 H 26 H Rate Blood Pressure 127/84 121/89 Blood Pressure [Left] O2 Sat by Pulse 97 97 98 Oximetry 03/12/22 03/12/22 03/12/22 04:45 05:00 05:53 Temperature Pulse Rate 90 93 H Respiratory 26 H 23 Rate Blood Pressure 126/96 126/96 139/91 Blood Pressure [Left] O2 Sat by Pulse 97 99 100 Oximetry 03/12/22 03/12/22 03/12/22 06:01 06:15 06:31 Temperature Pulse Rate 83 81 90 Respiratory 27 H 14 28 H Rate Blood Pressure 139/91 139/91 139/91 Blood Pressure [Left] O2 Sat by Pulse 97 99 96 Oximetry 03/12/22 03/12/22 03/12/22 06:45 07:01 09:53 Temperature 99.3 F Pulse Rate 88 95 H Respiratory 23 22 Rate Blood Pressure 139/91 139/91 Blood Pressure [Left] O2 Sat by Pulse 97 96 Oximetry 03/12/22 11:22 Temperature Pulse Rate 86 Respiratory 16 Rate Blood Pressure Blood Pressure 126/82 [Left] O2 Sat by Pulse 99 Oximetry - Reevaluation(s) Reevaluation #1: 03/12/22 06:32 pt is well appearing; asking to eat food; denies any abdominal pain; states body aches have resolved ED Medical Decision Making - Lab Data Result diagrams: 03/12/22 05:16 03/12/22 05:16 - Radiology Data Radiology results: report reviewed - Medical Decision Making 61-year-old female with multiple medical comorbidities presents for evaluation last night for complaints of fever body aches and runny nose. Patient was febrile upon arrival. At the time of my assessment of her the following morning, the patient was afebrile. Vitals were stable. Physical exam was benign. Serum labs reviewed and she had an elevated proBNP without overt evidence via chest x-ray of acute heart failure. Amongst the patient's d ocumented medical problems, the patient states that "I was told I have COPD" although this is not documented on the patient electronic health record. To cover for any possible bacterial sources of her infection, she will be placed on azithromycin at the time of discharge. Analgesics provided for symptomatic relief. Patient deemed stable for discharge to home. Prior to discharge she was advised to follow-up with her primary care doctor for reassessment. All questions answered by me at the patient's bedside. Patient deemed stable for discharge to home Critical care attestation.: If time is entered above; I have spent that time in minutes in the direct care of this critically ill patient, excluding procedure time. ED Disposition Clinical Impression: Cough, Fever, Body aches Disposition: 01 HOME / SELF CARE / HOMELESS Is pt being admited?: No Does the pt Need Aspirin: No Condition: Stable Instructions: Fever, Adult, Cough, Adult, [id number] Additional Instructions: Please follow up with your primary care doctor within 1-2 business days for reassessment. This is very important. The cause of your fever is unknown. Given that it will take several more hours for your covid test to result, the results cannot be given to you at this time. You will be telephoned with the results, once it has been processed. For your pain and fever, it is strongly advised that you take ibuprofen 600mg by mouth every 608 hours, as needed. For any additional pain or fever you may experience in between your ibuprofen dosages, please take acetaminophen 650mg by mouth. This may be taken itself every 4-6 hours. Be sure to drink fluids to stay hydrated. Your chest xray does not show pneumonia. However, you have an elevation in the laboratory result that indicates possible underlying heart failure. Therefore, in the even that you may have mild development of fluid in your lungs, you are being placed on furosemide. It is a water pill (diuretic)Please take this one tablet daily. Observe your symptoms very carefully. Return to the nearest emergency department as soon as possible if you develop chest pain, worsening shortness of breath, vomiting, dizziness, fevers that are not responding to ibuprofen and acetaminophen, or if any other new worrisome symptoms develop. Prescriptions: Furosemide [Lasix TAB] 20 mg PO QDAY 14 Days #14 tablet Azithromycin [Zithromax Z-BALDOMERO] 250 mg PO DAILY #6 tab Referrals: PRIMARY CARE,MD [Primary Care Provider] - 3-5 Days
[2022-03-12] MEDS ORDERED: ONDANSETRON 4 MG/2 ML INJ IV ONE (06:33)
[2022-03-12 06:44] LABS: Basophils % (Manual) 0 % (0.0-1.8); Eosinophils % (Manual) 0 % (0.0-4.3); Total Cells Counted 100
[2022-03-12 06:45] LABS: Ovalocytes 1+
[2022-03-12 06:47] LABS: Platelet Estimate Consistent w Auto; Schistocytes 1+
[2022-03-12] MEDS ORDERED: FUROSEMIDE 20 MG/2 ML INJ IV ONE (08:06)
[2022-03-12] MEDS ORDERED: IBUPROFEN 800 MG TAB PO ONE (09:48)
--- NOTE | 2022-03-12 10:43 | Electrocardiograph Report ---
[facility] Test Date: 2022-03-11 Test Time: 18:38:59 Pat Name: CONCHA BELL Department: Room: Gender: F Temporary Administrative Assistant: ARIS : 1960 Requested By: JIM MAYERS Order Number: [id number] Reading MD: Thiago Brown Measurements Intervals [place] Rate: 104 P: MO: QRS: -51 QRSD: 83 T: 94 QT: 352 QTc: 464 Interpretive Statements Atrial fibrillation Left anterior fascicular block LVH with secondary repolarization abnormality Compared to ECG 12/07/2021 07:20:29 Early repolarization now present T-wave abnormality no longer present ST (T wave) deviation no longer present Myocardial infarct finding no longer present Electronically Signed On 03-12-2022 10:42:55 EDT by Thiago Brown
[2022-03-12 11:23] VITALS: BP 126/82
== END 2022-03-12 12:30 | disposition home or self-care (01) ==
LOC: ED 18:26
DX: R50.9 Fever, unspecified (principal); R05.9 Cough, unspecified; M79.10 Myalgia, unspecified site; I10 Essential (primary) hypertension; J45.909 Unspecified asthma, uncomplicated; Z98.890 Other specified postprocedural states; Z87.891 Personal history of nicotine dependence; Z79.899 Other long term (current) drug therapy; Z20.822 Contact with and (suspected) exposure to COVID-19
CPT/HCPCS: 36415; 71045; 71046; 80048; 81001; 82140; 83880; 84484; 85007; 85025; 85379; 85610; 85730; 87040; 87076; 87086; 87186; 93005; 96374; 99284; J1940; J7030; U0003